=== PATIENT | male | born 1955 | race Caucasian/White ===

== ENCOUNTER → 2019-10-22 09:07 | Outpatient (REF) | payer OTHER, SELFPAY | LOC: ANHLAB 09:07 | PROVIDERS: PCP Family Medicine; Visit Provider Nurse Practitioner | DX: C44.319 Basal cell carcinoma of skin of other parts of face (principal) | CPT/HCPCS: 88305 ==

== ENCOUNTER 2019-12-13 10:54 | Outpatient (CLI) | payer OTHER, SELFPAY ==
[2019-12-13 11:14] LABS: Basophils Absolute Auto 0.1 K/mm3 (0.0-0.1); Basophils Percent Auto 1.1 % (0.2-1.2); Eosinophils Absolute Auto 0.2 K/mm3 (0-0.3); Eosinophils Percent Auto 3.3 % (0-4.4); Hematocrit 48.9 % (42.0-52.0); Hemoglobin 16.1 g/dL (14.0-18.0); Immature Granulocyte Absolute 0.02 K/mm3 (0.00-0.031); Immature Granulocyte Percent A 0.3 % (0-0.5); Lymphocytes Absolute Auto 2.61 K/mm3 (0.9-3.2); Lymphocytes Percent Auto 40.7 % (18.3-44.2); Mean Corpuscular HGB Conc 32.9 g/dl (32-36); Mean Corpuscular Hemoglobin 30.8 pg (26-34); Mean Corpuscular Volume 93.7 fl (80-100); Mean Platelet Volume 9.8 fl (7.4-10.4); Monocytes Absolute Auto 0.5 K/mm3 (0.1-0.6); Monocytes Percent Auto 8.1 % (2.6-8.5); Neutrophils Percent Auto 46.5 % (45.5-73.1); Platelet Count Result 223 k/mm3 (150-375); Red Blood Count 5.22 M/mm3 (4.6-6.20); Red Cell Distribution Width 12.4 % (11.5-14.5); White Blood Count 6.4 K/mm3 (4.5-10.0)
[2019-12-13 12:27] LABS: Alanine Aminotransferase 88 U/L (4-50); Albumin Level 4.4 g/dL (3.5-5.1); Alkaline Phosphatase 78 U/L (38-126); Aspartate Amino Transferase 54 U/L (17-59); Bilirubin,Total 0.6 mg/dL (0.2-1.3); Blood Urea Nitrogen 17 mg/dL (9-20); Calcium 9.8 mg/dL (8.4-10.2); Carbon Dioxide 26 mmol/L (22-30); Chloride 106 mmol/L (98-107); Estimated Glomerular Filt Rate > 60; Glucose 122 mg/dL (75-110); Lactate Dehydrogenase 369 U/L (313-618); Potassium 4.8 mmol/L (3.4-5.0); Sodium 139 mmol/L (137-145)
== END 2019-12-13 10:55 | disposition home or self-care (01) ==
PROVIDERS: PCP Family Medicine; Visit Provider Internal Medicine Hematology & Oncology
DX: C43.72 Malignant melanoma of left lower limb, including hip (principal)
CPT/HCPCS: 36415; 80053; 83615; 85025

== ENCOUNTER 2019-12-30 03:18 | Outpatient (CLI) | payer OTHER, SELFPAY ==
[2019-12-31 20:06] LABS: SARS-CoV-2 RNA PCR Negative
== END 2019-12-30 03:19 | disposition home or self-care (01) ==
LOC: ANHCOVIDDT 03:18
PROVIDERS: PCP Family Medicine; Visit Provider Internal Medicine Gastroenterology
DX: Z01.812 Encounter for preprocedural laboratory examination (principal); Z11.59 Encounter for screening for other viral diseases
CPT/HCPCS: 87635; C9803; U0003

== ENCOUNTER 2020-01-01 02:16 | Day surgery (SDC) | payer OTHER, SELFPAY ==
[2019-12-24 10:17] VITALS: BMI 30.9
[2020-01-01 06:16] VITALS: BP 145/83; PULSE 59; RESP 16; TEMP 36.3; O2SAT 97
[2020-01-01] MEDS: LACTATED RINGERS 1,000 ML 150 ML IV CONT (06:29)
--- NOTE | 2020-01-01 07:11 | WPDANESEPPF ---
Anes - Initial Pre Proc Eval Procedure: Operation Date: 01/01/20 07:30 Proposed Procedures p Screening Colonoscopy - Julián Underwood MD Date/Time: 01/01/20 07:11 Surgeon: Julián Underwood MD Pre Op Diagnosis: Neoplasm Screening Patient Data Age: 64 Gender: M Height: 5 ft 10 in Weight: 96.5 kg Last Vital Signs Temp 97.4 F L 01/01/20 06:16 Pulse 59 L 01/01/20 06:16 Resp 16 01/01/20 06:16 BP 145/83 H 01/01/20 06:16 Pulse Ox 97 01/01/20 06:16 Allergies Allergy/AdvReac Type Severity Reaction Status Date / Time No Known Allergies Allergy Verified 01/01/20 06:19 Home Medications Medication Instructions Recorded Confirmed Type No Home Medications 01/01/20 01/01/20 History Patient hx anesthesia problems: none Family hx anesthesia problems: none PMFSH Past Medical History Medical History (Updated 11/29/19 @ 10:53 by Wilver Clifton MD) Actinic keratoses High cholesterol History of melanoma Screen for colon cancer Screening PSA (prostate specific antigen) Surgical History Surgical History History of melanoma excision Social History Social History Smoking status: Never smoker Alcohol intake: current Anes - Eval Final PreProcedure Day of Procedure 01/01/20 07:11 Patient weight: normal Heart: regular rate and rhythm Lungs: clear to auscultation Airway: Mallampati scale class II Neurological: alert and oriented Last oral intake: >/= 8 hours ASA classification: II Emergent: no Anesthetic plan: proceed Anesthesia type and monitoring: general GIVS and standard monitoring Informed Consent: The patient's anesthetic plan and its attendant risks and benefits were discussed with the patient/family/POA. Questions were solicited and answers provided to the satisfaction of the patient/family/POA.
--- NOTE | 2020-01-01 07:33 | PM.HPGS ---
History of Present Illness History of Present Illness Consent: Risks, benefits, and alternatives have been discussed and questions answered. Patient agrees to proceed with procedure. Chief complaint: Neoplasm Screening Narrative: Flynn Gurrola is a 64 year old male here with history of colon polyps Review of Systems Constitutional: Constitutional: Denies headache(s) and Denies weakness Eyes: Eyes: Denies blurry vision ENT: Reports Normal hearing present, Denies headache(s) and Denies neck pain Cardiovascular: Cardiovascular: Denies chest pain and Denies dyspnea Respiratory: Respiratory: Denies dyspnea Gastrointestinal: Gastrointestinal: Reports no additional gastrointestinal complaints Genitourinary: Genitourinary: Denies dysuria Musculoskeletal: Musculoskeletal: Denies neck pain Integumentary/Breasts: Skin/Breast: Denies dry skin Neurologic: Reports Normal hearing present, Denies headache(s) and Denies weakness Psychiatric: Psychiatric: Denies anxiety Endocrine: Endocrine: Denies change in body appearance Hematologic/Lymphatic: Hematologic/Lymphatic: Denies easy bleeding Allergic/Immunologic: Allergic/Immunologic: Denies urticaria PMFSH Past Medical History Medical History (Updated 01/01/20 @ 07:34 by Julián Underwood MD) Actinic keratoses Colon polyp High cholesterol History of melanoma Screen for colon cancer Screening PSA (prostate specific antigen) Surgical History Surgical History History of melanoma excision Social History Social History Smoking status: Never smoker Alcohol intake: current Meds Home Medications and Allergies Home Medications Medication Instructions Recorded Confirmed Type No Home Medications 01/01/20 01/01/20 History Allergies Allergy/AdvReac Type Severity Reaction Status Date / Time No Known Allergies Allergy Verified 01/01/20 06:19 Vital Signs Vital Signs - 24 hr 01/01/20 06:16 Temperature 97.4 F L Pulse Rate 59 L Respiratory Rate 16 Blood Pressure 145/83 H Pulse Oximetry 97 Exam Const: General: comfortable and no acute distress HENMT: General nose exam: Normal nares present Eyes: General: appearance normal, both eyes and all related structures Neck: Neck: no JVD Resp: Auscultation: clear to auscultation bilaterally Cardio: Rate: regular rate Rhythm: regular rhythm GI: Inspection: non-distended GI Palp: Yes Soft to palpation Skin: General skin exam: normal color Neuro: General: gait normal Speech: normal speech Extrem: General: normal to inspection Psych: Mental Status: mental status grossly normal Assessment and Plan Assessment and plan (1) Colon polyp: Code(s): K63.5 - Polyp of colon Status: Acute Assessment and Plan: he is due to have another colonoscopy (2) Type 2 diabetes mellitus without complications: Qualifiers: Diabetes mellitus joint terminal attack controller insulin use: without joint terminal attack controller use Qualified Code(s): E11.9 - Type 2 diabetes mellitus without complications Code(s): E11.9 - Type 2 diabetes mellitus without complications Status: Acute
[2020-01-01 08:00] VITALS: BP 118/76; PULSE 55; RESP 19; O2SAT 98
[2020-01-01 08:10] VITALS: BP 105/73; PULSE 48; RESP 20; O2SAT 98
[2020-01-01 08:20] VITALS: BP 107/72; PULSE 48; RESP 20; O2SAT 99
== END 2020-01-01 08:33 | disposition home or self-care (01) ==
PROVIDERS: PCP Family Medicine; Visit Provider Internal Medicine Gastroenterology
PROC: 0DJD8ZZ Inspection of Lower Intestinal Tract, Via Natural or Artificial Opening Endoscopic (ICD-10-PCS; CPT 45378; principal; 2020-01-01 07:30)
DX: Z12.11 Encounter for screening for malignant neoplasm of colon (principal); D12.2 Benign neoplasm of ascending colon; D12.4 Benign neoplasm of descending colon; K57.30 Diverticulosis of large intestine without perforation or abscess without bleeding; K64.8 Other hemorrhoids
CPT/HCPCS: 45380; 45385; 87635; 88305; C9803; J2704; J7120; U0003

== ENCOUNTER → 2020-02-17 09:09 | Outpatient (REF) | payer OTHER, SELFPAY | LOC: ANHLAB 09:09 | PROVIDERS: PCP Family Medicine; Visit Provider Nurse Practitioner | DX: C44.319 Basal cell carcinoma of skin of other parts of face (principal) | CPT/HCPCS: 88305; 88331 ==

== ENCOUNTER 2020-06-16 11:38 | Outpatient (CLI) | payer OTHER, SELFPAY ==
[2020-06-16 11:55] LABS: Basophils Absolute Auto 0.1 K/mm3 (0.0-0.1); Basophils Percent Auto 1.1 % (0.2-1.2); Eosinophils Absolute Auto 0.2 K/mm3 (0-0.3); Eosinophils Percent Auto 2.9 % (0-4.4); Hematocrit 50.1 % (42.0-52.0); Hemoglobin 16.7 g/dL (14.0-18.0); Immature Granulocyte Absolute 0.02 K/mm3 (0.00-0.031); Immature Granulocyte Percent A 0.3 % (0-0.5); Lymphocytes Absolute Auto 2.26 K/mm3 (0.9-3.2); Mean Corpuscular HGB Conc 33.3 g/dl (32-36); Mean Corpuscular Hemoglobin 30.8 pg (26-34); Mean Corpuscular Volume 92.4 fl (80-100); Mean Platelet Volume 9.3 fl (7.4-10.4); Monocytes Absolute Auto 0.6 K/mm3 (0.1-0.6); Monocytes Percent Auto 8.9 % (2.6-8.5); Neutrophils Absolute Auto 3.2 K/mm3 (1.3-6.7); Neutrophils Percent Auto 50.8 % (45.5-73.1); Platelet Count Result 226 k/mm3 (150-375); Red Blood Count 5.42 M/mm3 (4.6-6.20); Red Cell Distribution Width 12.3 % (11.5-14.5); White Blood Count 6.3 K/mm3 (4.5-10.0)
[2020-06-16 12:45] LABS: Alanine Aminotransferase 84 U/L (4-50); Albumin Level 4.3 g/dL (3.5-5.1); Alkaline Phosphatase 73 U/L (38-126); Anion Gap 7 mmol/L (8-16); Aspartate Amino Transferase 54 U/L (17-59); Bilirubin,Total 0.7 mg/dL (0.2-1.3); Blood Urea Nitrogen 18 mg/dL (9-20); Calcium 10.1 mg/dL (8.4-10.2); Carbon Dioxide 29 mmol/L (22-30); Chloride 102 mmol/L (98-107); Estimated Glomerular Filt Rate > 60; Glucose 229 mg/dL (75-110); Lactate Dehydrogenase 385 U/L (313-618); Potassium 4.5 mmol/L (3.4-5.0); Sodium 138 mmol/L (137-145)
== END 2020-06-16 11:39 | disposition home or self-care (01) ==
LOC: ANHLAB 11:41
PROVIDERS: PCP Family Medicine; Visit Provider Internal Medicine Hematology & Oncology
DX: C43.72 Malignant melanoma of left lower limb, including hip (principal)
CPT/HCPCS: 36415; 80053; 83615; 85025

== ENCOUNTER → 2020-10-27 08:29 | Outpatient (REF) | payer MEDICARE, SELFPAY | LOC: ANHLAB 08:29 | PROVIDERS: PCP Family Medicine; Visit Provider Nurse Practitioner | DX: C43.61 Malignant melanoma of right upper limb, including shoulder (principal) | CPT/HCPCS: 88305; 88342 ==

== ENCOUNTER → 2020-11-09 00:25 | Outpatient (CLI) | payer MEDICARE, SELFPAY ==
[2020-11-09 21:52] LABS: SARS-CoV-2 RNA PCR Negative
== END ==
PROVIDERS: PCP Family Medicine; Visit Provider Surgery Plastic and Reconstructive Surgery
DX: Z01.812 Encounter for preprocedural laboratory examination (principal); Z20.822 Contact with and (suspected) exposure to COVID-19
CPT/HCPCS: C9803; U0003; U0005

== ENCOUNTER 2020-11-12 02:52 | Day surgery (SDC) | payer MEDICARE, SELFPAY ==
[2020-11-04 15:17] VITALS: BMI 30.2
--- NOTE | 2020-11-11 08:58 | WPDANESEPPF ---
Anes - Initial Pre Proc Eval Procedure: Operation Date: 11/12/20 10:00 Proposed Procedures p Excision Melanoma Right Shoulder with [place] Lymph Node Biopsy, Possible Complex Closure - Anish Kuo MD Date/Time: 11/11/20 08:58 Surgeon: Anish Kuo MD Pre Op Diagnosis: melanoma right shoulder Patient Data Age: 65 Gender: M Height: 1.78 m Weight: 95.35 kg Allergies Allergy/AdvReac Type Severity Reaction Status Date / Time No Known Allergies Allergy Verified 11/12/20 08:17 Home Medications Medication Instructions Recorded Confirmed Type No Home Medications 01/01/20 11/12/20 History Patient hx anesthesia problems: none Family hx anesthesia problems: none PMFSH Past Medical History Medical History (Updated 11/11/20 @ 09:02 by Pavan Hanley MD) Actinic keratoses Colon polyp High cholesterol History of basal cell carcinoma (BCC) History of melanoma Mixed hyperlipidemia Obesity Screen for colon cancer Screening PSA (prostate specific antigen) Type 2 diabetes mellitus without complications Surgical History Surgical History History of melanoma excision Family History Family History Mother Family history of diabetes mellitus in first degree relative Family history of coronary artery disease Family history of malignant neoplasm of ovary Father Family history of diabetes mellitus in first degree relative Family history of coronary artery disease Diabetes mellitus Social History Social History Smoking status: Never smoker Alcohol intake: current Alcohol use details: ONE DRINK PER MONTH Living arrangements: with family Spiritual care concerns: No Anes - Eval Final PreProcedure Day of Procedure 11/11/20 08:58 Patient weight: obese Heart: regular rate and rhythm Lungs: clear to auscultation and normal air movement Airway: Mallampati scale class II Neurological: alert and oriented Last oral intake: >/= 8 hours ASA classification: III Emergent: no Anesthetic plan: proceed Anesthesia type and monitoring: general LMA and ETT Informed Consent: The patient's anesthetic plan and its attendant risks and benefits were discussed with the patient/family/POA. Questions were solicited and answers provided to the satisfaction of the patient/family/POA.
[2020-11-12] VITALS (7 sets, daily range): BP systolic 108–139; BP diastolic 55–74; PULSE 52–59; RESP 10–16; TEMP 36.1–36.2; O2SAT 98–100
--- NOTE | ~2020-11-12 | NM_ITS ---
EXAMINATION: NM sentinel node w imaging EXAM DATE: 11/12/2020 09:25 INDICATION: Right shoulder melanoma. TECHNIQUE: 0.5-5 mCi Tc-99m Lymphoseek was injected in 2 separate aliquots anterior and posterior to a right-sided shoulder biopsy site. Frontal planar images were obtained. FINDINGS: Initial image demonstrates activity in the right shoulder injection site. After approximat lizeth 30 minutes of time, 2 foci of activity were identified in the junction between the right supracla vicular region and base of the neck. These were marked by the technologist. No axillary activity was demonstrated. IMPRESSION: 2 sentinel lymph nodes identified, marked at junction between right supraclavicular and neck regions. Reviewed, dictated and finalized at location A. IMPRESSION: 2 sentinel lymph nodes identified, marked at junction between rig t supraclavicular and neck regions.
[2020-11-12] MEDS: LACTATED RINGERS 1,000 ML 30 ML IV CONT ×2 (07:55→11:58)
--- NOTE | 2020-11-12 08:23 | SUR.PREOP ---
0820 PT TO NUCLEAR MEDICINE PER WHEELCHAIR.
--- NOTE | 2020-11-12 10:11 | WPDHPUPDATE1 ---
History and Physical Update Update Date/Time: 11/12/20 10:11 History and Physical has been reviewed, including an updated exam of the patient. There are NO changes in the patient's condition. Risks, benefits, and alternatives have been discussed and questions answered. Patient agrees to proceed with procedure.
--- NOTE | 2020-11-12 10:27 | P.OP_ITS ---
Procedure Note - Detailed Date of Procedure 11/12/20 Pre-op Diagnosis melanoma right shoulder Post-op Diagnosis same Procedure Performed 1. Wide excision right shoulder melanoma 8cm 2. Intermediate closure right shoulder 8cm 3. Right neck sentinel lymph node biopsy x 1 Surgeon Anish Kuo MD Anesthesia general Indications SKIN LESION OF RIGHT SHOULDER, PUNCH BIOPSY: - MALIGNANT MELANOMA, 0.2 CM IN GREATEST DIMENSION, ULCERATED, WITH DEPTH OF INVASION OF 1.5 MM Findings Right shoulder melanoma taken with greater 2 cm clinical margin. Description of Procedure Today we had an extensive conversation about the risks, benefits, alternatives with him and his . This was a lengthy open-ended conversation making sure they were well informed. I explained just because he has had success with previ ous melanoma this is unique melanoma with unique risks and unique outcomes. All the risks previously discussed still apply. Further I went over this discussion again today to make sure he was well informed. I made sure answered every 1 of their questions their understanding. They voiced an understanding. Consent obtained. Preoperatively he went to radiology was injected with radionucleotide. Films were taken. He was marked in the preoperative holding area with him and his 's verification of the location to be certain. The markings for sentinel node were clearly visible in his neck. Taken the operating room placed supine on the operating room table. Anesthesia was provided by anesthesiology and prepped and draped in a standard sterile fashion. Surgical time-out was taken. 1% lidocaine and 0.25% Marcaine was epinephrine was used anesthetize the nose site as well as the planned excision site. Using the probe identified the sentinel node in the neck. Only a single node w as identified with the probe. A 15 blade used to make an incision over these and dissection was continued until the nodes were identified. No evidence of neurovascular other structure injury. Background was less than 10% of the node. The node was sent to pathology. Closed using 3-0 Monocryl followed by running subcuticular 4-0 Monocryl and tissue glue. A 15 blade used to make an incision with greater than 2 cm clinical margin around the melanoma site. This was continued down to the level of fashion elevated just above above the fascia. This was closed in many layers to obliterate all space using 2-0 Vicryl, 3- 0 Monocryl, and vertical mattress 3-0 Nylon. Dressings placed. Estimated Blood Loss 10 Drains No Packing No Pathology yes (Lymph node x 1 and melanoma) Complications No immediate complications Condition stable Disposition PACU
[2020-11-12] MEDS: ceFAZolin 2 GM/D5W 50 ML 2 GM/50 ML BAG IVPB (10:35)
[2020-11-12] MEDS: BUPIVACAINE HCL 0.25% PF 30 ML VIAL INFILTRATE (11:08)
[2020-11-12] MEDS: LIDO 1%/EPINEPHRINE 1:100,000 50 ML VIAL 15 ML INFILTRATE (11:09)
[2020-11-12 16:35] LABS: Glucose Point of Care 116 mg/dl (65-105)
== END 2020-11-12 13:50 | disposition home or self-care (01) ==
PROVIDERS: PCP Family Medicine; Visit Provider Surgery Plastic and Reconstructive Surgery
PROC: (CPT 11606; principal; 2020-11-12 10:00)
DX: C43.61 Malignant melanoma of right upper limb, including shoulder (principal); E78.2 Mixed hyperlipidemia; E11.9 Type 2 diabetes mellitus without complications; E66.9 Obesity, unspecified; Z68.30 Body mass index [BMI] 30.0-30.9, adult
CPT/HCPCS: 11606; 12034; 38510; 78195; 82948; 88305; 88307; 88342; A9520; C1713; C9803; J0690; J1100; J2250; J2405; J2704; J3010; J7120; U0003; U0005

== ENCOUNTER 2020-11-23 08:22 | Outpatient (CLI) | payer MEDICARE, SELFPAY ==
[2020-11-23 09:01] LABS: Basophils Absolute Auto 0.1 K/mm3 (0.0-0.1); Basophils Percent Auto 0.9 % (0.2-1.2); Eosinophils Absolute Auto 0.2 K/mm3 (0-0.3); Eosinophils Percent Auto 2.7 % (0-4.4); Hematocrit 49.2 % (42.0-52.0); Hemoglobin 16.6 g/dL (14.0-18.0); Immature Granulocyte Absolute 0.02 K/mm3 (0.00-0.031); Immature Granulocyte Percent A 0.3 % (0-0.5); Lymphocytes Absolute Auto 2.81 K/mm3 (0.9-3.2); Lymphocytes Percent Auto 36.3 % (18.3-44.2); Mean Corpuscular HGB Conc 33.7 g/dl (32-36); Mean Corpuscular Hemoglobin 31.3 pg (26-34); Mean Corpuscular Volume 92.8 fl (80-100); Mean Platelet Volume 9.8 fl (7.4-10.4); Monocytes Absolute Auto 0.7 K/mm3 (0.1-0.6); Monocytes Percent Auto 8.4 % (2.6-8.5); Neutrophils Percent Auto 51.4 % (45.5-73.1); Platelet Count Result 220 k/mm3 (150-375); White Blood Count 7.8 K/mm3 (4.5-10.0)
[2020-11-23 09:32] LABS: Alanine Aminotransferase 39 U/L (4-50); Albumin Level 4.5 g/dL (3.5-5.1); Alkaline Phosphatase 77 U/L (38-126); Anion Gap 11 mmol/L (8-16); Aspartate Amino Transferase 30 U/L (17-59); Bilirubin,Total 0.4 mg/dL (0.2-1.3); Blood Urea Nitrogen 20 mg/dL (9-20); Calcium 10.1 mg/dL (8.4-10.2); Carbon Dioxide 25 mmol/L (22-30); Chloride 106 mmol/L (98-107); Estimated Glomerular Filt Rate > 60; Glucose 133 mg/dL (75-110); Lactate Dehydrogenase 327 U/L (313-618); Potassium 4.3 mmol/L (3.4-5.0); Sodium 142 mmol/L (137-145)
== END 2020-11-23 08:23 | disposition home or self-care (01) ==
LOC: ANHLAB 08:34
PROVIDERS: PCP Family Medicine; Visit Provider Internal Medicine Hematology & Oncology
DX: C43.72 Malignant melanoma of left lower limb, including hip (principal)
CPT/HCPCS: 36415; 80053; 83615; 85025

== ENCOUNTER 2020-12-15 11:16 | Emergency (ER) | payer MEDICARE, SELFPAY ==
[2020-12-15] VITALS (17 sets, daily range): BP systolic 117–156; BP diastolic 63–131; PULSE 57–74; RESP 15–27; TEMP 36.6; O2SAT 93–99
--- NOTE | ~2020-12-15 | XR_ITS ---
EXAMINATION: XR chest 2V DATE: 12/15/2020 12:36 INDICATION: Dizziness, fatigue and numbness in the extremities TECHNIQUE: frontal and lateral views of the chest were obtained. COMPARISON: None FINDINGS: The lungs are clear with no focal airspace opacities, pulmonary edema, pleural effusion or pneumothor ax. The cardiomediastinal silhouette is normal. Mild degenerative skeletal changes in the spine and a t both shoulders. IMPRESSION: 1. No acute cardiopulmonary disease. Reviewed, dictated and finalized at location A.
--- NOTE | ~2020-12-15 | CT_ITS ---
EXAMINATION: CTA brain carotid DATE: 12/15/2020 12:14 INDICATION: Stroke. TECHNIQUE: Computed tomographic angiography (CTA) of the head was performed without and with 100 mL O mnipaque-350 intravenous contrast. CTA of the neck was performed with intravenous contrast. Automated exposure control and iterative reconstruction technique were employed. The dose-length product was 1 608.58 mGy-cm. Maximum intensity projection and volume rendered 3D-reconstructions were created by e technologist on a separate workstation. COMPARISON: CT maxillofacial 10/16/2018. FINDINGS: HEAD CTA: There is a 1.4 cm mixed hypodense and hyperdense mass in right occipital lobe with surround ing intraparenchymal hematoma measuring 5.5 x 2.5 cm that is hyperdense and isodense to ribeiro matter. There is a 13 mm hyperdense mass involving right thalamus and posterior limb right internal capsule. There is a 13 mm hyperdense mass in right parietal lobe with surrounding vasogenic edema. There is a 15 mm mass in left parietal lobe that is mildly hyperdense to ribeiro matter with surrounding vasogenic edema. There is a 4 mm hyperdense mass in right frontal lobe. There is no acute ischemic infarct. The ventricles are normal in size. The paranasal sinuses are clear. The mastoid air cells are normal. e orbits are normal. The vertebral arteries are codominant. There is no significant stenosis of basil ar artery or the posterior cerebral arteries. Left P1 posterior cerebral artery segment is absent, a normal variant. The posterior communicating arteries are normal. There is no significant stenosis of the intracranial internal carotid arteries or anterior or middle cerebral arteries. Anterior communic ating artery is normal. There is no aneurysm. NECK CTA: The visualized portions of the lung apices demonstrate a few scattered pulmonary nodules me asuring up to 9 mm in left upper lobe. There are no pathologically enlarged lymph nodes. There is no significant stenosis of the vertebral arteries. There is mild plaque in the proximal internal carotid arteries. There is 0% stenosis of the proximal right internal carotid artery relative to normal dist al artery lumen diameter (NASCET criteria). There is 0% stenosis of the proximal left internal caroti d artery relative to normal distal artery lumen diameter. There is severe cervical spondylosis. IMPRESSION: 1. Multiple brain masses and lung nodules, consistent with metastatic disease. 2. Intraparenchymal hematoma in right occipital lobe around a metastasis, likely subacute. I called t his result to Dr. Kelsey. 3. No aneurysm or significant intracranial arterial stenosis. 4. 0% stenosis of the proximal internal carotid arteries relative to normal distal artery lumen diame ters (NASCET criteria). Reviewed, dictated and finalized at location A. IMPRESSION: 1. Multiple brain masses and lung nodules, consistent with metastatic disease. 2. Intraparenchymal hematoma in right occipital lobe around a metastasis, likel y subacute. I called this result to Dr. Kelsey. 3. No aneurysm or significant intracranial arterial stenosis. 4. 0% stenosis of the proximal internal carotid arteries relative to normal dis lauryn artery lumen diameters (NASCET criteria).
--- NOTE | 2020-12-15 11:29 | ECG_ITS ---
Measurements Intervals [place] Rate: 55 P: 20 [place]: 154 QRS: 34 QRSD: 110 T: 28 QT: 418 QTc: 402 Interpretive Statements SINUS BRADYCARDIA BASELINE ARTIFACT- I, II, III, AVR, AVL, AVF, V1-V3 BORDERLINE ECG Electronically Signed On 12-16-2020 7:33:45 CDT by Adrián Malagon D.O.
[2020-12-15 11:43] LABS: Basophils Absolute Auto 0.1 K/mm3 (0.0-0.1); Basophils Percent Auto 1.2 % (0.2-1.2); Eosinophils Absolute Auto 0.1 K/mm3 (0-0.3); Hematocrit 50.2 % (42.0-52.0); Hemoglobin 16.9 g/dL (14.0-18.0); Immature Granulocyte Absolute 0.02 K/mm3 (0.00-0.031); Immature Granulocyte Percent A 0.3 % (0-0.5); Lymphocytes Absolute Auto 2.12 K/mm3 (0.9-3.2); Mean Corpuscular HGB Conc 33.7 g/dl (32-36); Mean Corpuscular Hemoglobin 31.2 pg (26-34); Mean Corpuscular Volume 92.8 fl (80-100); Monocytes Absolute Auto 0.4 K/mm3 (0.1-0.6); Monocytes Percent Auto 6.2 % (2.6-8.5); Neutrophils Absolute Auto 3.9 K/mm3 (1.3-6.7); Neutrophils Percent Auto 58.3 % (45.5-73.1); Platelet Count Result 228 k/mm3 (150-375); Red Blood Count 5.41 M/mm3 (4.6-6.20); White Blood Count 6.6 K/mm3 (4.5-10.0)
[2020-12-15 11:54] LABS: Anion Gap 9 mmol/L (8-16); Blood Urea Nitrogen 17 mg/dL (9-20); Calcium 10.1 mg/dL (8.4-10.2); Carbon Dioxide 27 mmol/L (22-30); Chloride 105 mmol/L (98-107); Estimated CRCL calculation 75 ml/min; Estimated Glomerular Filt Rate > 60; Glucose 199 mg/dL (75-110); Sodium 141 mmol/L (137-145)
--- NOTE | 2020-12-15 12:52 | ED.GENADULT ---
HPI - General Adult General Chief complaint: Unspecified Stated complaint: blurred vision Time Seen by Provider: 12/15/20 11:23 History of Present Illness HPI narrative: Patient is a 65-year-old male who presents ER with dizziness and left peripheral vision loss is affecting both eyes. Ongoing for 14 days. Initially started after he had received nitrous oxide for a dental procedure. Reports he also had intense headache that day. He has been having intermittent headaches since then. Patient recently had a melanoma excised from his right shoulder on 11/12/2020 with sentinel node biopsy that was negative. He sees Dr. Murcia for oncologic care. Patient denies any upper or lower extremity weakness or numbness. No slurred speech or facial droop. He is not on any blood thinning medication. No previous history of CVA. Related Data Home Medications Medication Instructions Recorded Confirmed No Home Medications 12/15/20 12/15/20 Allergies Allergy/AdvReac Type Severity Reaction Status Date / Time No Known Allergies Allergy Verified 12/15/20 11:29 Review of Systems Review of Systems: All systems reviewed & are unremarkable except as noted in HPI and below Constitutional: Constitutional: Denies chills and Denies fever(s) Eyes: Eyes: Reports blind spots, Denies blurry vision, Reports change in vision and Denies diplopia Gastrointestinal: Gastrointestinal: Denies abdominal pain, Denies nausea and Denies vomiting Neurologic: Denies abnormal gait, Reports dizziness, Denies syncope, Denies frequent falls, Reports headache(s), Denies focal weakness and Denies seizure-like activity PMFSH Past Medical History Medical History Actinic keratoses Colon polyp High cholesterol History of basal cell carcinoma (BCC) History of melanoma Mixed hyperlipidemia Obesity Screen for colon cancer Screening PSA (prostate specific antigen) Type 2 diabetes mellitus without complications Surgical History Surgical History History of melanoma excision Family History Family History Mother Family history of diabetes mellitus in first degree relative Family history of coronary artery disease Family history of malignant neoplasm of ovary Father Family history of diabetes mellitus in first degree relative Family history of coronary artery disease Diabetes mellitus Social History Social History Smoking status: Never smoker Alcohol intake: current Alcohol use details: ONE DRINK PER MONTH Spiritual care concerns: No Exam Narrative: Exam Narrative: GENERAL: Well-appearing, well-nourished, and in no acute distress. HEAD: Normocephalic, atraumatic. EYES: PERRL and EOMI. loss of vision in the left upper and lower visual felix and bilateral eyes. ENT: Mucous membranes moist. CHEST: Clear to auscultation. No respiratory distress. HEART: Regular rate and rhythm. Normal peripheral pulses. ABDOMEN: Soft, nontender, nondistended. EXTREMITIES: Normal range of motion. No edema. SKIN: Warm, dry, no rash. NEURO: Normal [id number] testing rapid alternating movements of the upper extremities. No upper or lower extremity drift. Clear speech with cranial nerves II through XII intact with the exception of the visual field deficits as noted above. Alert and oriented x3. Walks with a steady gait. PSYCH: Normal mood and affect. Course Reevaluation(s) Reevaluation #1: Discussed CT results with patient and . Informed the patient's PCP and oncologist about the results of the imaging studies. Dr. Murcia the patient's oncologist recommends transfer to the [facility] for further evaluation and treatment. Date: 12/15/20 Time: 12:56 Reevaluation #2: Patient resting comfortably. Was accepted by Dr. Mireles
[2020-12-15] MEDS: DEXAMETHASONE SOD PHOS INJ 4 MG/ML VIAL 10 MG IV PUSH (13:54)
[2020-12-15] MEDS: levETIRAcetam 1000MG/NACL100ML 1,000 MG/100 ML BAG 400 MG IVPB (13:55)
--- NOTE | 2020-12-15 17:28 | PC.NURSE ---
Report given at this time to MIRA Rogers @ [facility]. ROom [id number]
--- NOTE | 2020-12-15 19:32 | PC.NURSE ---
made contact with [employer] for a new eta. company stated new eta 2030
--- NOTE | 2020-12-15 20:27 | PC.NURSE ---
pat has arrived and is aware that the patient is going to [facility]
== END 2020-12-15 20:34 | disposition short-term general hospital (02) ==
PROVIDERS: Emergency Provider Emergency Medicine; PCP Family Medicine
DX: C80.1 Malignant (primary) neoplasm, unspecified (principal); C79.31 Secondary malignant neoplasm of brain; C78.00 Secondary malignant neoplasm of unspecified lung; I61.9 Nontraumatic intracerebral hemorrhage, unspecified; E78.5 Hyperlipidemia, unspecified; E11.9 Type 2 diabetes mellitus without complications
CPT/HCPCS: 36415; 70496; 70498; 71046; 80048; 85025; 93005; 96374; 96375; 99285; J1100; J1953; Q9967

== ENCOUNTER → 2021-01-07 09:23 | Outpatient (REF) | payer MEDICARE, SELFPAY | LOC: ANHLAB 09:23 | PROVIDERS: PCP Family Medicine; Visit Provider Nurse Practitioner | DX: D22.4 Melanocytic nevi of scalp and neck (principal) | CPT/HCPCS: 88305 ==

== ENCOUNTER 2021-01-11 08:36 | Outpatient (CLI) | payer MEDICARE, SELFPAY ==
--- NOTE | ~2021-01-11 | CT_ITS ---
EXAMINATION: CT soft tissue neck chest w DATE: 01/11/2021 09:27 INDICATION: Malignant melanoma of left lower extremity. TECHNIQUE: Computed tomography (CT) of the neck and chest was performed with 75 mL Omnipaque-350 intr avenous contrast. Automated exposure control and iterative reconstruction technique were employed. Th e dose-length product was 1084.86 mGy-cm. COMPARISON: CTA head and neck 12/15/2020, CT abdomen and pelvis 06/13/2019 FINDINGS: CT NECK: Again seen are masses in the right occipital lobe and right thalamus. There is vasogenic fabian ma in the right frontoparietal region from a mass that is not included. There are no pathologically e nlarged lymph nodes. There is minimal plaque in proximal right internal carotid artery with 0% stenos is relative to normal distal artery lumen diameter. There are surgical clips in right neck. There is severe cervical spondylosis. There is mild mucosal thickening in the ethmoid sinuses. The mastoid air cells are normal. CT CHEST: The lungs demonstrate mild atelectasis. There are greater than 15 scattered nodules in the lungs measuring up to 13 mm in left lower lobe. No pleural effusion. The heart size is normal. No per icardial effusion. There are changes of cholecystectomy. There is diffuse hepatic steatosis. There is mild thoracic spondylosis. IMPRESSION: 1. Brain masses and pulmonary nodules, consistent metastatic disease. Reviewed, dictated and finalized at location A.
== END 2021-01-11 08:37 | disposition home or self-care (01) ==
LOC: ANHIMG 08:39
PROVIDERS: PCP Family Medicine; Visit Provider Internal Medicine Hematology & Oncology
DX: C43.72 Malignant melanoma of left lower limb, including hip (principal); R91.8 Other nonspecific abnormal finding of lung field
CPT/HCPCS: 70491; 71260; Q9967

== ENCOUNTER 2021-01-19 08:41 | Outpatient (CLI) | payer MEDICARE, SELFPAY ==
[2021-01-19 09:05] LABS: Basophils Absolute Auto 0.1 K/mm3 (0.0-0.1); Basophils Percent Auto 0.7 % (0.2-1.2); Eosinophils Absolute Auto 0.1 K/mm3 (0-0.3); Hematocrit 46.8 % (42.0-52.0); Hemoglobin 15.8 g/dL (14.0-18.0); Immature Granulocyte Absolute 0.18 K/mm3 (0.00-0.031); Immature Granulocyte Percent A 2.5 % (0-0.5); Lymphocytes Absolute Auto 1.26 K/mm3 (0.9-3.2); Lymphocytes Percent Auto 17.8 % (18.3-44.2); Mean Corpuscular HGB Conc 33.8 g/dl (32-36); Mean Corpuscular Hemoglobin 31.5 pg (26-34); Mean Corpuscular Volume 93.2 fl (80-100); Mean Platelet Volume 8.6 fl (7.4-10.4); Monocytes Absolute Auto 0.7 K/mm3 (0.1-0.6); Monocytes Percent Auto 9.9 % (2.6-8.5); Neutrophils Absolute Auto 4.8 K/mm3 (1.3-6.7); Neutrophils Percent Auto 67.1 % (45.5-73.1); Platelet Count Result 170 k/mm3 (150-375); Red Blood Count 5.02 M/mm3 (4.6-6.20); Red Cell Distribution Width 12.7 % (11.5-14.5); White Blood Count 7.1 K/mm3 (4.5-10.0)
[2021-01-19 09:08] LABS: Blood Urea Nitrogen 18 mg/dL (8-26); Carbon Dioxide 27 mmol/L (22-30); Chloride 101 mmol/L (98-109); Estimated Glomerular Filt Rate > 60; Glucose 144 mg/dL (70-105); Potassium 4.2 mmol/L (3.5-4.9); Sodium 139 mmol/L (138-146)
[2021-01-19 13:08] LABS: MALB Creatinine Ratio 10.8 mg/g (0-30)
[2021-01-19 13:32] LABS: Hemoglobin A1C 8.3 % (<5.7)
[2021-01-19 16:43] LABS: Alanine Aminotransferase 138 U/L (4-50); Albumin Level 3.9 g/dL (3.5-5.1); Alkaline Phosphatase 74 U/L (38-126); Aspartate Amino Transferase 38 U/L (17-59); Bilirubin,Total 0.8 mg/dL (0.2-1.3); Cholesterol 209 mg/dL (0-200); HDL Direct 63 mg/dL; Triglycerides 149 mg/dL (<150)
[2021-01-19 16:45] LABS: Alanine Aminotransferase 137 U/L (4-50); Albumin Level 3.8 g/dL (3.5-5.1); Alkaline Phosphatase 73 U/L (38-126); Anion Gap 6 mmol/L (8-16); Aspartate Amino Transferase 38 U/L (17-59); Bilirubin,Total 0.8 mg/dL (0.2-1.3); Blood Urea Nitrogen 18 mg/dL (9-20); Carbon Dioxide 27 mmol/L (22-30); Chloride 105 mmol/L (98-107); Estimated Glomerular Filt Rate > 60; Glucose 136 mg/dL (65-110); Lactate Dehydrogenase 498 U/L (313-618); Potassium 4.5 mmol/L (3.4-5.0); Sodium 138 mmol/L (137-145)
[2021-01-19 16:56] LABS: LDL Cholesterol Direct 104 mg/dL
== END 2021-01-19 08:42 | disposition home or self-care (01) ==
LOC: ANHLAB 08:44
PROVIDERS: PCP Family Medicine; Referring Provider Internal Medicine Hematology & Oncology; Visit Provider Family Medicine
DX: E78.2 Mixed hyperlipidemia (principal); E11.9 Type 2 diabetes mellitus without complications; Z13.220 Encounter for screening for lipoid disorders; C43.72 Malignant melanoma of left lower limb, including hip; C79.31 Secondary malignant neoplasm of brain; Z12.5 Encounter for screening for malignant neoplasm of prostate
CPT/HCPCS: 36415; 80048; 80053; 80061; 80076; 82043; 83036; 83615; 85025

== ENCOUNTER → 2021-01-25 09:12 | Outpatient (CLI) | payer MEDICARE, SELFPAY ==
[2021-01-26 01:23] LABS: SARS-CoV-2 RNA PCR Negative
== END ==
PROVIDERS: PCP Family Medicine; Visit Provider Family Medicine
DX: R68.89 Other general symptoms and signs (principal); Z20.822 Contact with and (suspected) exposure to COVID-19
CPT/HCPCS: C9803; U0003; U0005

== ENCOUNTER 2021-01-26 18:13 | Emergency (ER) | payer MEDICARE, SELFPAY ==
--- NOTE | ~2021-01-26 | XR_ITS ---
XR chest 2V DATE: 01/26/2021 18:59 INDICATION: Fever, body aches, nonproductive cough, nausea TECHNIQUE: AP and lateral chest COMPARISON: 12/15/2020 2 view chest FINDINGS: Normal heart size. No hilar or mediastinal enlargement. There is mild atelectasis in the lower lung zones, right greater than left. No pleural effusion or pu lmonary vascular congestion or pneumothorax. Degenerative spurring of the thoracic and lumbar spine. IMPRESSION: Mild bilateral lower lung atelectasis, right greater than left Reviewed, dictated and finalized at location A.
[2021-01-26 18:39] VITALS: BP 114/71; PULSE 73; RESP 18; TEMP 37.1; O2SAT 99
[2021-01-26 19:33] VITALS: BP 116/75; PULSE 67; RESP 16; O2SAT 98
[2021-01-26 19:50] VITALS: O2SAT 99
[2021-01-26 19:54] LABS: Basophils Absolute Auto 0.1 K/mm3 (0.0-0.1); Basophils Percent Auto 0.8 % (0.2-1.2); Eosinophils Absolute Auto 0.1 K/mm3 (0-0.3); Eosinophils Percent Auto 1.3 % (0-4.4); Hematocrit 44.5 % (42.0-52.0); Hemoglobin 15.2 g/dL (14.0-18.0); Immature Granulocyte Absolute 0.31 K/mm3 (0.00-0.031); Immature Granulocyte Percent A 3.6 % (0-0.5); Lymphocytes Absolute Auto 1.52 K/mm3 (0.9-3.2); Lymphocytes Percent Auto 17.8 % (18.3-44.2); Mean Corpuscular HGB Conc 34.2 g/dl (32-36); Mean Corpuscular Hemoglobin 31.4 pg (26-34); Mean Corpuscular Volume 91.9 fl (80-100); Mean Platelet Volume 8.8 fl (7.4-10.4); Neutrophils Absolute Auto 5.5 K/mm3 (1.3-6.7); Neutrophils Percent Auto 64.5 % (45.5-73.1); Platelet Count Result 233 k/mm3 (150-375); Red Blood Count 4.84 M/mm3 (4.6-6.20); Red Cell Distribution Width 12.4 % (11.5-14.5); White Blood Count 8.5 K/mm3 (4.5-10.0)
[2021-01-26 20:17] LABS: Alanine Aminotransferase 70 U/L (4-50); Albumin Level 3.9 g/dL (3.5-5.1); Alkaline Phosphatase 74 U/L (38-126); Anion Gap 6 mmol/L (8-16); Aspartate Amino Transferase 39 U/L (17-59); Bilirubin,Total 1.1 mg/dL (0.2-1.3); Blood Urea Nitrogen 9 mg/dL (9-20); Calcium 9.5 mg/dL (8.4-10.2); Carbon Dioxide 26 mmol/L (22-30); Chloride 102 mmol/L (98-107); Estimated CRCL calculation 83 ml/min; Estimated Glomerular Filt Rate > 60; Glucose 99 mg/dL (65-110); Potassium 3.7 mmol/L (3.4-5.0); Sodium 134 mmol/L (137-145)
--- NOTE | 2021-01-26 20:23 | ED.GENADULT ---
HPI - General Adult General Chief complaint: Upper Respiratory Infection Stated complaint: Cough,Fever,Chills x 1 week Negative COVId Time Seen by Provider: 01/26/21 19:36 Source: patient History of Present Illness HPI narrative: Patient is a 65 y/o male complaining of cough, fever, chills and bodyache starting 1 week ago. He states that his cough is mostly dry. There is no known alleviating or exacerbating factor. He state that his PCP called in Z-pack, but it has not helped so far. 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 Related Data Home Medications Medication Instructions Recorded Confirmed levetiracetam 500 mg/5 mL (5 mL) 500 mg PO Q12H 01/18/21 01/21/21 oral solution omeprazole 20 mg PO PRN PRN 01/21/21 01/21/21 Allergies Allergy/AdvReac Type Severity Reaction Status Date / Time No Known Allergies Allergy Verified 01/26/21 19:34 Review of Systems Constitutional: Constitutional: Reports chills, Reports fever(s), Denies headache(s) and Denies weakness Eyes: Eyes: Denies blurry vision ENT: Denies headache(s), Denies neck pain and Reports sore throat Cardiovascular: Cardiovascular: Denies chest pain and Reports dyspnea Respiratory: Respiratory: Reports cough and Reports dyspnea Gastrointestinal: Gastrointestinal: Denies abdominal pain, Denies diarrhea, Denies nausea and Denies vomiting Genitourinary: Genitourinary: Denies hematuria and Denies dysuria Musculoskeletal: Musculoskeletal: Denies back pain and Denies neck pain Neurologic: Denies headache(s) and Denies weakness [facility] Past Medical History Medical History Actinic keratoses BMI 28.0-28.9,adult Colon polyp High cholesterol History of basal cell carcinoma (BCC) History of melanoma Mixed hyperlipidemia Obesity Screen for colon cancer Screening PSA (prostate specific antigen) Type 2 diabetes mellitus without complications Surgical History Surgical History History of melanoma excision Family History Family History Mother Family history of diabetes mellitus in first degree relative Family history of coronary artery disease Family history of malignant neoplasm of ovary Father Family history of diabetes mellitus in first degree relative Family history of coronary artery disease Diabetes mellitus Social History Social History Smoking status: Never smoker Alcohol intake: current Alcohol use details: ONE DRINK PER MONTH Spiritual care concerns: No Exam Const: General: no acute distress and well developed Orientation/consciousness: oriented to person, oriented to place, oriented to time and patient oriented x3 HENMT: Head: normocephalic Ears: external ears normal General nose exam: Normal external nose present Eyes: General: appearance normal, both eyes and all related structures Conjunctivae: conjunctivae normal Neck: Neck: normal visual inspection and full ROM Chest: Chest palpation & inspection: normal inspection of the chest and no tenderness Resp: Effort & Inspection: normal respiratory effort Auscultation: clear to auscultation bilaterally Cardio: Rate: regular rate Rhythm: regular rhythm GI: GI Palp: No abdominal tenderness and Yes Soft to palpation Skin: General skin exam: normal color and turgor normal Neuro: General: oriented to person, oriented to place, oriented to time and patient oriented x3 Cognition (Neuro): normal cognition Extrem: General: normal to inspection, full ROM and no pedal edema Psych: Appearance: grossly normal Mental Status: mental status grossly normal Affect: normal affect Course Vital Signs Vital signs: Vital Signs Temperature 37.1 C 01/26/21 18:39 Pulse Rate 73 01/26/21 18:39 Respiratory Rate
[2021-01-26 20:27] LABS: EDCOVIDSCREEN Negative (Negative)
[2021-01-26 20:34] VITALS: BP 123/69; PULSE 68; RESP 16; O2SAT 94
[2021-01-26 21:12] VITALS: BP 116/66; PULSE 69; RESP 25; O2SAT 95
== END 2021-01-26 21:16 | disposition home or self-care (01) ==
PROVIDERS: Emergency Provider Emergency Medicine; PCP Family Medicine
DX: Z20.822 Contact with and (suspected) exposure to COVID-19 (principal); J06.9 Acute upper respiratory infection, unspecified; E78.5 Hyperlipidemia, unspecified; E11.9 Type 2 diabetes mellitus without complications
CPT/HCPCS: 36415; 71046; 80053; 85025; 87426; 99283; C9803

== ENCOUNTER 2021-02-04 02:01 | Day surgery (SDC) | payer MEDICARE, SELFPAY ==
[2021-02-01 14:19] VITALS: BMI 28.7
--- NOTE | 2021-02-03 12:32 | WPDANESEPPF ---
Anes - Initial Pre Proc Eval Procedure: Operation Date: 02/04/21 09:00 Proposed Procedures p Blaire Catheter Insertion - Miles Howard MD Date/Time: 02/03/21 12:32 Surgeon: Miles Howard MD Pre Op Diagnosis: Cancer Patient Data Age: 65 Gender: M Height: 1.78 m Weight: 90.9 kg Allergies Allergy/AdvReac Type Severity Reaction Status Date / Time No Known Allergies Allergy Verified 02/04/21 07:58 Home Medications Medication Instructions Recorded Confirmed Type levetiracetam 500 mg/5 mL (5 mL) 500 mg PO Q12H 01/18/21 02/04/21 History oral solution omeprazole 20 mg PO PRN PRN 01/21/21 02/04/21 History ondansetron 4 mg disintegrating 4 mg PO Q8H PRN #10 tablet 02/02/21 02/04/21 Rx tablet Patient hx anesthesia problems: none Family hx anesthesia problems: none PMFSH Past Medical History Medical History (Updated 02/03/21 @ 12:33 by Wellington Waters DO) Actinic keratoses BMI 28.0-28.9,adult Brain tumor x5 Colon polyp GERD (gastroesophageal reflux disease) High cholesterol History of basal cell carcinoma (BCC) History of melanoma Mixed hyperlipidemia Obesity Screen for colon cancer Screening PSA (prostate specific antigen) Type 2 diabetes mellitus without complications Surgical History Surgical History History of melanoma excision Family History Family History Mother Family history of diabetes mellitus in first degree relative Family history of coronary artery disease Family history of malignant neoplasm of ovary Father Family history of diabetes mellitus in first degree relative Family history of coronary artery disease Diabetes mellitus Social History Social History Smoking status: Never smoker Alcohol intake: current Alcohol use details: ONE DRINK PER MONTH Living arrangements: with family Spiritual care concerns: No Anes - Eval Final PreProcedure Day of Procedure 02/03/21 12:32 Patient weight: overweight Heart: regular rate and rhythm Lungs: clear to auscultation and normal air movement Airway: Mallampati scale class II Neurological: alert and oriented Last oral intake: >/= 8 hours ASA classification: III Emergent: no Anesthetic plan: proceed Anesthesia type and monitoring: general GIVS and standard monitoring Informed Consent: The patient's anesthetic plan and its attendant risks and benefits were discussed with the patient/family/POA. Questions were solicited and answers provided to the satisfaction of the patient/family/POA.
--- NOTE | ~2021-02-04 | XR_ITS ---
EXAMINATION: XR fl guide central line place DATE: 02/04/2021 09:52 INDICATION: Port catheter insertion TECHNIQUE: Single frontal fluoroscopic image of the upper chest was obtained during procedure perform ed by Dr. Howard. Radiologist was not present for the imaging or procedure. The amount of fluoroscop y time used during this procedure was 0.5 minutes. COMPARISON: None. FINDINGS: Right internal jugular central venous catheter with distal tip at the level of the mid superior vena cava. Visualized apices of lungs and superior mediastinum are unremarkable. IMPRESSION: 1. Right internal jugular central venous catheter with distal tip in the mid superior vena cava. Reviewed, dictated and finalized at location A. IMPRESSION: 1. Right internal jugular central venous catheter with distal tip in the mid mayers perior vena cava.
--- NOTE | ~2021-02-04 | XR_ITS ---
EXAMINATION: XR chest port-a-cath/central INDICATION: Port-A-Cath insertion TECHNIQUE: Portable AP view of the chest is obtained at 1012 COMPARISON: 01/26/2021 FINDINGS: A right internal jugular Port-A-Cath has been inserted which ends with its tip at the super ior cavoatrial junction. There is no pleural effusion or pneumothorax. The cardiomediastinal silhouet te is normal. The lungs are free of acute opacities. There is mild atelectasis of the lung bases. IMPRESSION: 1. Right internal jugular Port-A-Cath insertion. No pneumothorax. Reviewed, dictated and finalized at location A.
[2021-02-04 07:18] VITALS: BP 107/70; PULSE 53; RESP 18; TEMP 36.6; O2SAT 99
[2021-02-04] MEDS: LACTATED RINGERS 1,000 ML 30 ML IV CONT ×2 (07:52→10:05)
[2021-02-04] MEDS: KETOROLAC 15 MG/ML VIAL (*BKC) IV PUSH (07:55)
--- NOTE | 2021-02-04 08:32 | PM.HPGS ---
History of Present Illness History of Present Illness Consent: Risks, benefits, and alternatives Of placement of an ultrasound-guided Port-A-Cath have been discussed and questions answered. Patient agrees to proceed with procedure. Chief complaint: Cancer Narrative: Flynn Gurrola is a 65 year old male who has had melanoma in 2 places. Most recently on his right posterior shoulder and had a excisional therapy with right sentinel lymph node biopsy on his neck. 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 Patient and Dr. Divina tillman now planning to proceed with palliative immunotherapy. He has put in a request for a port placement to facilitate this. Review of Systems Constitutional: Constitutional: Reports no additional constitutional complaints, Reports fatigue and Denies malaise Eyes: Eyes: Denies change in vision and Denies loss of vision ENT: Reports Normal hearing present, Denies change in voice, Denies dizziness, Denies hoarseness and Denies sore throat Cardiovascular: Cardiovascular: Denies chest pain, Denies leg edema and Denies dyspnea Respiratory: Respiratory: Denies cough, Denies dyspnea and Denies wheezing Gastrointestinal: Gastrointestinal: Denies hematochezia, Denies change in bowel habits and Denies heartburn Genitourinary: Genitourinary: Denies urinary frequency and Denies urinary incontinence Integumentary/Breasts: Comments: History of Melanoma of the Posterior lower leg near the ankle Neurologic: Reports Normal hearing present, Denies confusion, Denies dizziness, Denies loss of vision, Denies memory loss and Denies seizure-like activity Psychiatric: Psychiatric: Denies confusion, Denies depression and Denies memory loss Endocrine: Endocrine: Denies cold intolerance, Reports fatigue and Reports other ( history of type 2 diabetes) Hematologic/Lymphatic: Hematologic/Lymphatic: Denies easy bleeding and Denies easy bruising Allergic/Immunologic: Allergic/Immunologic: Denies wheezing PMFSH Past Medical History Medical History (Updated 02/04/21 @ 08:44 by Miles Howard MD) Actinic keratoses BMI 28.0-28.9,adult Brain tumor x5 Colon polyp GERD (gastroesophageal reflux disease) High cholesterol History of basal cell carcinoma (BCC) History of melanoma 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 (Unknown) Mixed hyperlipidemia Obesity Screen for colon cancer Screening PSA (prostate specific antigen) Type 2 diabetes mellitus without complications Surgical History Surgical History History of melanoma excision Family History Family History Mother Family history of diabetes mellitus in first degree relative Family history of coronary artery disease Family history of malignant neoplasm of ovary Father Family history of diabetes mellitus in first degree relative Family history of coronary artery disease Diabetes mellitus Social History Social History Smoking status: Never smoker Alcohol intake: current Alcohol use details: ONE DRINK PER MONTH Living arrangements: with family Spiritual care concerns: No Meds Home Medications and Allergies Home Medications Medication Instructions Recorded Confirmed Type levetiracetam 500 mg/5 mL (5 mL) 500 mg PO Q12H 01/18/21 02/04/21 History oral solution omeprazole 20 mg PO PRN PRN 01/21/21 02/04/21 History ondansetron 4 mg disintegrating 4 mg PO Q8H PRN #10 tablet 02/02/21 02/04/21 Rx tablet Allergies Allergy/AdvReac Type Severity Reaction Status Date / Time No Known Allergies Allergy Verified 02/04/21 07:58 Vital Signs Vital Signs - 24 hr 02/04/21 07:18 Temperature 36.6 C Pulse Rate 53 L Respiratory Rate 18 Blood Pressure 107/70 Pulse Oximetry 99 Exam Const: General: cooperative, healthy
--- NOTE | 2021-02-04 09:03 | WPDHPUPDATE1 ---
History and Physical Update Update Date/Time: 02/04/21 09:03 History and Physical has been reviewed, including an updated exam of the patient. There are NO changes in the patient's condition. Risks, benefits, and alternatives have been discussed and questions answered. Patient agrees to proceed with procedure.
[2021-02-04] MEDS: ceFAZolin 2 GM/D5W 50 ML 2 GM/50 ML BAG IVPB (09:07)
[2021-02-04] MEDS: HEPARIN SODIUM 5,000 UNITS/ML VIAL 5000 UNITS IRRIGATION (09:45)
--- NOTE | 2021-02-04 10:01 | W.PM.PROC2 ---
Procedure Note - Detailed Date of Procedure 02/04/21 Pre-op Diagnosis Malignant melanoma with metastasis to the brain Post-op Diagnosis same Procedure Performed Ultrasound guided Placement of Blaire-cath Surgeon Miles Howard MD Settlement Clerk John Paul [email or web address].OR staff physical therapy assistant Anesthesia local (with 0.25% Marcaine with epinepherine) and other (GIVS) Indications Patient has just completed her radiation treatments to metastasis to the brain from his malignant melanoma that was excised earlier this year on the posterior right shoulder region. He is planning to undergo palliative immunotherapy. Findings Normal vascular anatomy by ultrasound of the right neck. Description of Procedure Patient was seen and marked in the pre-op area prior to coming to the OR. Patient was brought to the operating room. Patient was placed supine on the operating table and general IV sedation was induced. The nurse tailor garment fitter provided oxygen and IV sedation. Patient's head was carefully turned to the left side while in the supine position and the patient's entire neck and anterior chest on both sides was prepped and draped in the usual sterile fashion. Following this the appropriate time-out was completed confirming procedure and patient. We confirmed that all the needed equipment was present in the room. Following this the ultrasound probe was draped into the field and using the probe we carefully identified the carotid artery and jugular vein on the right neck. We then took a picture of the vascular anatomy of the neck and transferred from the ultrasound to the Cura TV chart. I marked the skin directly over the Rt. internal jugular vein. I then used an 11 blade knife to make a small julien in the skin. Following this, using the continuous ultrasound guidance, a Cook needle was placed through the skin incision and on into this vein. I then was able to draw back good dark blood. Once this was completed a guidewire using a J-tip was advanced through the needle and then the needle and the guidewire cover were withdrawn. C-arm fluoroscopy was used to confirm that the guidewire was nicely in the venous system. Once this was confirmed with the C - arm, I preceded on by making the pocket for the port on the patient's anterior right chest approximately 3 centimeters below the clavicle overlying the chest wall. Local anesthetic was infiltrated into the skin where there was a transverse incision marked out. Incision was made and we made a pocket inferior to the incision with just a little dissection superior. The Bard low-profile port was tried in the pocket and seemed to fit well. Following this the catheter which had been placed on a tunneling device was tunneled from the port site on the anterior right chest up to the right neck where the small incision had been made slightly larger with an #11 blade knife. Then the catheter was pulled through so that we would have 15 centimeters to put into the central venous system once the dilation took place. Following this we placed the dilator and sheath over the guidewire in the jugular vein and carefully dilated the tract into the central venous system. The guidewire and dilator were then removed, carefully covering the end of the sheath to prevent air embolus. The end of the catheter which had been removed from the tunneling device and the tip checked was then inserted into the sheath and into the neck. I then carefully pulled the 2 arms of the tear-away sheath away as the speech pathologist assistant held the catheter in position with a DeBakey forceps. Following this we checked the position of the catheter with C-arm fluoroscopy confirming that the tip seemed to be in the distal superior vena cava near the junction with the right atrium. I felt that it was in good position and so the rest of the catheter was pulled down toward the feet into the port site. We then measured to the appropriate position to cut the catheter to attach it to the port stem. Then twin mulligan
[2021-02-04 10:05] VITALS: BP 89/54; PULSE 58; RESP 20; O2SAT 94
[2021-02-04 10:20] VITALS: BP 104/65; PULSE 54; RESP 18
[2021-02-04 10:35] VITALS: BP 105/65; PULSE 55; RESP 18
[2021-02-04 10:50] VITALS: BP 120/69; PULSE 67; RESP 20
== END 2021-02-04 11:00 | disposition home or self-care (01) ==
PROVIDERS: PCP Family Medicine; Visit Provider Surgery
PROC: (CPT 36561; principal; 2021-02-04 09:00)
DX: C79.31 Secondary malignant neoplasm of brain (principal); C43.61 Malignant melanoma of right upper limb, including shoulder; E78.2 Mixed hyperlipidemia; E11.9 Type 2 diabetes mellitus without complications; K21.9 Gastro-esophageal reflux disease without esophagitis
CPT/HCPCS: 36561; 76937; 77001; C1788; J0690; J1644; J1885; J2250; J2704; J3010; J7030; J7120

== ENCOUNTER 2021-03-05 10:37 | Emergency (ER) | payer MEDICARE, SELFPAY ==
[2021-03-05 11:21] VITALS: BP 111/76; PULSE 53; RESP 14; TEMP 36.9; O2SAT 99
[2021-03-05 11:26] LABS: Glucose Point of Care > 500 mg/dl (65-105)
[2021-03-05 11:36] VITALS: BP 129/75; PULSE 48; RESP 16; O2SAT 96
[2021-03-05 12:06] LABS: Hematocrit 43.3 % (42.0-52.0); Hemoglobin 15.1 g/dL (14.0-18.0); Immature Platelet Fraction Pct 6.3 % (0.9-11.2); Mean Corpuscular HGB Conc 34.9 g/dl (32-36); Mean Corpuscular Hemoglobin 31.7 pg (26-34); Mean Platelet Volume 10.7 fl (7.4-10.4); Platelet Count Result 100 k/mm3 (150-375); Red Blood Count 4.76 M/mm3 (4.6-6.20); White Blood Count 10.8 K/mm3 (4.5-10.0)
[2021-03-05 12:38] LABS: Add Urine Microscopic? YES; Appearance Urine Clear (Clear); Bilirubin Urine Negative (Negative); Blood Urine Negative (Negative); Color Urine Straw (Yellow); Glucose Urine UA 3+ mg/dL (Negative); Ketones Urine Trace mg/dL (Negative); Leukocyte Esterase Ur Negative LEU/UL (Negative); Nitrate Urine Negative (Negative); Protein Urine Negative (Negative); RBC Urine 0-2 /hpf (0-2); Urobilinogen Urine Negative mg/dL (<2.0); WBC Urine 0-3 /hpf
[2021-03-05 12:40] LABS: Alanine Aminotransferase 539 U/L (4-50); Albumin Level 3.8 g/dL (3.5-5.1); Alkaline Phosphatase 69 U/L (38-126); Anion Gap 11 mmol/L (8-16); Aspartate Amino Transferase 46 U/L (17-59); Bilirubin,Total 1.3 mg/dL (0.2-1.3); Blood Urea Nitrogen 34 mg/dL (9-20); Calcium 9.5 mg/dL (8.4-10.2); Carbon Dioxide 21 mmol/L (22-30); Chloride 97 mmol/L (98-107); Estimated CRCL calculation 94 ml/min; Estimated Glomerular Filt Rate > 60; Glucose 570 mg/dL (65-110); Magnesium 2.4 mg/dL (1.6-2.3); Phosphorus 3.6 mg/dL (2.5-4.5); Potassium 4.5 mmol/L (3.4-5.0); Sodium 129 mmol/L (137-145)
[2021-03-05 13:04] LABS: Specific Grav Ur 1.037 (1.001-1.035)
[2021-03-05] MEDS: INSULIN HUMAN REGULAR (*BKC) 100 UNITS/ML IV PUSH (13:19)
[2021-03-05] MEDS: LACTATED RINGERS 1,000 ML 999 ML IV CONT (13:22)
--- NOTE | 2021-03-05 13:25 | ED.RECABL ---
HPI - Recheck/Abnormal Lab/Rx General Chief Complaint: Recheck/Abnormal Lab/Rx Stated Complaint: high blood sugar/pressure Time Seen by Provider: 03/05/21 12:22 Source: patient and family Mode of arrival: ambulatory Limitations: no limitations History of Present Illness HPI narrative: 65-year-old male He is being treated for metastatic melanoma, currently with chest and brain mets He was at the infusion center for a treatment and his blood sugar was high so he was sent to the ED He does not have a history of diabetes However he is currently on a high-dose of dexamethasone, 4 mg 3 times a day, and is slated to taper to 4 mg twice a day beginning tomorrow He has reported polydipsia and polyuria and getting up maybe 3 or 4 times a night to go to the bathroom for about the last 2 weeks Otherwise he does not have any new complaints Related Data Home Medications Medication Instructions Recorded Confirmed levetiracetam 500 mg/5 mL (5 mL) 500 mg PO Q12H 01/18/21 02/12/21 oral solution dexamethasone TID 03/05/21 Allergies Allergy/AdvReac Type Severity Reaction Status Date / Time No Known Allergies Allergy Verified 03/05/21 11:37 Review of Systems Review of Systems: All systems reviewed & are unremarkable except as noted in HPI and below Constitutional: Constitutional: Reports no additional constitutional complaints, Denies chills, Reports fatigue, Denies fever(s) and Denies headache(s) Eyes: Eyes: Reports no additional eye complaints and Denies change in vision ENT: Denies headache(s) and Denies sore throat Cardiovascular: Cardiovascular: Denies chest pain and Denies dyspnea Respiratory: Respiratory: Denies cough and Denies dyspnea Gastrointestinal: Gastrointestinal: Denies abdominal pain, Denies diarrhea, Denies nausea and Denies vomiting Genitourinary: Genitourinary: Denies dysuria and Reports urinary frequency Musculoskeletal: Musculoskeletal: Denies deformity, Denies arthralgias, Denies joint swelling and Denies numbness Integumentary/Breasts: Skin/Breast: Denies rash and Denies wounds Neurologic: Denies headache(s), Denies focal weakness and Denies numbness Psychiatric: Psychiatric: Reports no additional psychiatric complaints Endocrine: Endocrine: Reports no additional endocrine complaints, Reports polydipsia and Reports polyuria Hematologic/Lymphatic: Hematologic/Lymphatic: Reports as per HPI Allergic/Immunologic: Allergic/Immunologic: Reports no additional allergic/immunologic complaints [facility] Past Medical History Medical History (Updated 03/05/21 @ 13:41 by Jean Mckeon MD) Actinic keratoses BMI 28.0-28.9,adult Brain tumor x5 Colon polyp GERD (gastroesophageal reflux disease) High cholesterol History of basal cell carcinoma (BCC) History of melanoma 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 (Unknown) Mixed hyperlipidemia Obesity Screen for colon cancer Screening PSA (prostate specific antigen) Type 2 diabetes mellitus without complications Surgical History Surgical History History of melanoma excision Family History Family History Mother Family history of diabetes mellitus in first degree relative Family history of coronary artery disease Family history of malignant neoplasm of ovary Father Family history of diabetes mellitus in first degree relative Family history of coronary artery disease Diabetes mellitus Social History Social History Smoking status: Never smoker Alcohol intake: current Alcohol use details: ONE DRINK PER MONTH Spiritual care concerns: No Exam Const: General: cooperative, no acute distress and alert Orientation/consciousness: patient oriented x3 (alert) HENMT: Head: normal to inspection, normocephalic and atraumatic Ears: external ears normal General nose exam: no epist
[2021-03-05 13:34] VITALS: BP 132/80; PULSE 51; RESP 22; O2SAT 97
[2021-03-05 14:02] LABS: Glucose Point of Care 356 mg/dl (65-105)
[2021-03-05 15:47] VITALS: BP 120/77; PULSE 50; RESP 24; O2SAT 97
[2021-03-05 16:29] VITALS: BP 115/82; PULSE 48; RESP 20; O2SAT 98
[2021-03-05] MEDS: HEPARIN SODIUM LOCK FLUSH 500 UNITS/5 ML VIAL 100 UNITS IV PUSH (16:29)
== END 2021-03-05 16:43 | disposition home or self-care (01) ==
PROVIDERS: Emergency Medicine; Emergency Provider Emergency Medicine; PCP Family Medicine
DX: R73.9 Hyperglycemia, unspecified (principal); C43.9 Malignant melanoma of skin, unspecified; C79.31 Secondary malignant neoplasm of brain; C79.2 Secondary malignant neoplasm of skin; E78.00 Pure hypercholesterolemia, unspecified; E78.2 Mixed hyperlipidemia; K21.9 Gastro-esophageal reflux disease without esophagitis; Z86.010 Personal history of colon polyps
CPT/HCPCS: 36415; 80048; 80053; 81001; 82010; 82948; 83735; 84100; 84443; 85025; 85055; 96361; 96374; 99213; 99284; G0463; J1642; J1815; J7120

== ENCOUNTER → 2021-03-08 08:57 | Outpatient (REF) | payer MEDICARE, SELFPAY | LOC: ANHLAB 08:57 | PROVIDERS: PCP Family Medicine; Visit Provider Surgery Plastic and Reconstructive Surgery | DX: C43.62 Malignant melanoma of left upper limb, including shoulder (principal) | CPT/HCPCS: 88305; 88342 ==

== ENCOUNTER 2021-04-05 00:53 | Day surgery (SDC) | payer MEDICARE, SELFPAY ==
[2021-03-31 14:28] VITALS: BMI 28.5
[2021-04-05] VITALS (8 sets, daily range): BP systolic 94–137; BP diastolic 60–68; PULSE 53–73; RESP 13–19; TEMP 36.3–36.9; O2SAT 96–100
--- NOTE | ~2021-04-05 | NM_ITS ---
EXAMINATION: NM sentinel node w imaging EXAM DATE: 04/05/2021 12:09 INDICATION: LT shoulder melanoma. TECHNIQUE: 0.461 mCi Tc-99m Lymphoseek was injected to left shoulder melanoma biopsy site which was j ust posterior lateral to the humeral head level. This was done in 2 separate aliquots anterior and po sterior to the biopsy site. FINDINGS: Planar images demonstrate intense activity at the injection site. There was activity ident ified within a left axillary sentinel lymph node which was marked by the technologist. IMPRESSION: Left axillary sentinel lymph node identified, marked. Reviewed, dictated and finalized at location A.
[2021-04-05 10:36] LABS: Glucose Point of Care 128 mg/dl (65-105)
--- NOTE | 2021-04-05 10:51 | SUR.PREOP ---
PT TO NUCLEAR MED TO [id number]
[2021-04-05] MEDS: LACTATED RINGERS 1,000 ML 30 ML IV CONT ×2 (11:50→13:53)
--- NOTE | 2021-04-05 11:59 | SUR.PREOP ---
1150 PT RETURNED FROM NUCLEAR MED PER STRETCHER.
--- NOTE | 2021-04-05 12:22 | WPDANESEPPF ---
Anes - Initial Pre Proc Eval Procedure: Operation Date: 04/05/21 12:00 Proposed Procedures p Excision Melanoma Left Shoulder with [place] Lymph Node Biopsy - Anish Kuo MD Date/Time: 04/05/21 12:22 Surgeon: Anish Kou MD Pre Op Diagnosis: melanoma left shoulder Patient Data Age: 65 Gender: M Height: 1.73 m Weight: 79.6 kg Last Vital Signs Temp 36.9 C 04/05/21 09:54 Pulse 73 04/05/21 09:54 Resp 18 04/05/21 09:54 BP 94/64 L 04/05/21 09:54 Pulse Ox 100 04/05/21 09:54 Allergies Allergy/AdvReac Type Severity Reaction Status Date / Time No Known Allergies Allergy Verified 04/05/21 10:05 Home Medications Medication Instructions Recorded Confirmed Type ondansetron 4 mg disintegrating 4 mg PO Q8H PRN #10 tablet 02/02/21 04/05/21 Rx tablet blood sugar diagnostic #100 ea 03/08/21 Rx blood-glucose meter #1 ea 03/08/21 03/08/21 Rx lancets #100 ea 03/08/21 03/08/21 Rx pen needle, diabetic 32 gauge x #100 ea 03/08/21 03/08/21 Rx insulin lispro 100 unit/mL See Rx Instructions SUBCUT .QAC & 03/10/21 04/05/21 Rx subcutaneous pen QHS #3 ml MDD 80 lancets #200 ea 03/29/21 Rx levetiracetam 250 mg PO BID 03/31/21 04/05/21 History oxycodone 5 mg/5 mL oral solution 5 mg PO Q6H PRN #200 ml 04/05/21 Rx Laboratory Tests 04/05/21 10:30 POC Capillary Glucose 128 mg/dl H mg/dl (65-105) Patient hx anesthesia problems: none Family hx anesthesia problems: none Results Review: All pre-operative results and documents have been reviewed as part of the pre-operative evaluation. [facility] Past Medical History Medical History Actinic keratoses BMI 27.0-27.9,adult BMI 28.0-28.9,adult Brain tumor x5 Colon polyp Diabetes mellitus, drug-related GERD (gastroesophageal reflux disease) High cholesterol History of basal cell carcinoma (BCC) History of melanoma 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 (Unknown) Mixed hyperlipidemia Obesity Screen for colon cancer Screening PSA (prostate specific antigen) Surgical History Surgical History History of melanoma excision Family History Family History Mother Family history of diabetes mellitus in first degree relative Family history of coronary artery disease Family history of malignant neoplasm of ovary Father Family history of diabetes mellitus in first degree relative Family history of coronary artery disease Diabetes mellitus Social History Social History Smoking status: Never smoker Alcohol intake: former Alcohol use details: DRANK SOCIALLY IN PAST Substance use: never Living arrangements: with family Additional living arrangements comments: Spiritual care concerns: No Anes - Eval Final PreProcedure Day of Procedure 04/05/21 12:22 Patient weight: overweight Heart: regular rate and rhythm Lungs: clear to auscultation Airway: Mallampati scale class II Neurological: alert and oriented Last oral intake: >/= 8 hours ASA classification: III Emergent: no Anesthetic plan: proceed Anesthesia type and monitoring: general ETT and standard monitoring Results Review: All pre-operative results and documents have been reviewed as part of the pre-operative evaluation. Informed Consent: The patient's anesthetic plan and its attendant risks and benefits were discussed with the patient/family/POA. Questions were solicited and answers provided to the satisfaction of the patient/family/POA.
--- NOTE | 2021-04-05 12:39 | WPDHPUPDATE1 ---
History and Physical Update Update Date/Time: 04/05/21 12:39 History and Physical has been reviewed, including an updated exam of the patient. There are NO changes in the patient's condition. Risks, benefits, and alternatives have been discussed and questions answered. Patient agrees to proceed with procedure.
[2021-04-05] MEDS: ceFAZolin 2 GM/D5W 50 ML 2 GM/50 ML BAG IVPB (12:45)
[2021-04-05] MEDS: LIDO 1%/EPINEPHRINE 1:100,000 50 ML VIAL 15 ML INFILTRATE (13:33)
[2021-04-05] MEDS: BUPIVACAINE HCL 0.25% PF 30 ML VIAL 15 ML INFILTRATE (13:34)
--- NOTE | 2021-04-05 13:37 | W.PM.PROC2 ---
Procedure Note - Detailed Date of Procedure 04/05/21 Pre-op Diagnosis melanoma left shoulder Post-op Diagnosis same Procedure Performed 1. Wide excision left shoulder melanoma 5.5cm 2. Left axillary SLN biopsy Surgeon Anish Kuo MD Anesthesia general Indications Patient with metastatic melanoma. New primary left shoulder. A. SKIN LESION OF LEFT SHOULDER, PUNCH BIOPSY: - MALIGNANT MELANOMA, NODULAR TYPE, WITHOUT ULCERATION, WITH MAXIMUM DEPTH OF INVASION OF 2.0 MM (SEE COMMENT). Previously we have discussed his treatment course with Medical Oncology, primary care, patient and his . This is been lengthy open ended conversation discussing how to proceed given his current treatment status as well as diagnosis. This was discussed extensively again today with him and his . They would like proceed with wide excision and sentinel node biopsy. Description of Procedure Patient was marked in the preoperative holding area with him and his 's verification. Prior to surgery he had been injected with radionucleotide and nuclear Medicine. This identified a left axillary sentinel node. He was taken to the operating room. Anesthesia provided by anesthesiology. He was placed into a lateral decubitus position. Prepped and draped in a standard sterile fashion. First we proceeded with the sentinel node. I used the probe to identify the point of maximal count. 1% lidocaine and 0.25% Marcaine with epinephrine was used anesthetize locally. Dissection was continued down until the node was identified and removed. The background was well less than 10% of this sentinel node which was sent to pathology. No atypical findings noted on the node. This was closed using 2-0 Vicryl followed by 3-0 Monocryl in a running subcuticular 4-0 Monocryl and tissue glue. We then proceeded to the shoulder. I marked out greater than 2 cm margins. 1% lidocaine and 0.25% Marcaine with epinephrine was used anesthetize locally. Incising greater than 2 cm clinical margins dissection was continued down until just above the fascia and removed. A verified strict hemostasis. I closed using 2-0 Stratafix followed by 3-0 Stratafix in a running subcuticular 4-0 Monocryl and tissue glue. He was woken taken to the PACU without difficulty. All instrument sponge counts were correct at the end of the case. Estimated Blood Loss 10 Drains No Packing No Pathology yes (Left shoulder melanoma as well as left axillary sentinel lymph node.) Complications No immediate complications Condition stable Disposition PACU
[2021-04-05 14:08] LABS: Glucose Point of Care 94 mg/dl (65-105)
[2021-04-05] MEDS: ONDANSETRON INJ 4 MG/2 ML VIAL IV PUSH (15:17)
--- NOTE | 2021-04-05 16:01 | SUR.PHASEII ---
Vitals are stable and patient is unhooked from the monitors. He just waiting to get dressed and go home.
== END 2021-04-05 16:22 | disposition home or self-care (01) ==
PROVIDERS: PCP Family Medicine; Visit Provider Surgery Plastic and Reconstructive Surgery
PROC: (CPT 11606; principal; 2021-04-05 12:00)
DX: C43.62 Malignant melanoma of left upper limb, including shoulder (principal); C78.00 Secondary malignant neoplasm of unspecified lung; C79.31 Secondary malignant neoplasm of brain; Z92.3 Personal history of irradiation; Z79.899 Other long term (current) drug therapy; E09.9 Drug or chemical induced diabetes mellitus without complications; Z79.4 Long term (current) use of insulin; E78.5 Hyperlipidemia, unspecified; E78.00 Pure hypercholesterolemia, unspecified; K21.9 Gastro-esophageal reflux disease without esophagitis; Z85.828 Personal history of other malignant neoplasm of skin
CPT/HCPCS: 11606; 12032; 38500; 78195; 82948; 88305; 88307; 88342; A9520; J0690; J2250; J2270; J2405; J2704; J7120

== ENCOUNTER 2021-04-06 22:29 | Inpatient (IN) | payer MEDICARE, SELFPAY ==
[2021-04-06] VITALS (7 sets, daily range): BP systolic 125–129; BP diastolic 74–87; PULSE 68–76; RESP 16–21; TEMP 36.8; O2SAT 97–98
--- NOTE | ~2021-04-06 | MR_ITS ---
EXAMINATION: MR cervical spine wo/w con EXAM DATE: 04/08/2021 13:18 INDICATION: Malignant melanoma. TECHNIQUE: Multi-sequential, multiplanar MR images of the cervical spine were obtained without contra st. Axial T2, axial T2 MERGE sequence. Sagittal T1, T2, T2 fat saturation images also obtained. Axi al T1 weighted sequence. Patient was then injected with 16 mL Multihance intravenous contrast and re imaged. Postcontrast axial and sagittal T1-weighted fat saturation sequences were obtained. There i s no prior study for comparison. FINDINGS: There is moderate disc disease at C6-7, mild at the mid cervical levels. The spinal cord s ignal intensity and intrinsic morphology is normal. Cervicomedullary junction is normal in appearance . The vertebral bodies are aligned in the AP dimension. There are no suspicious marrow signal abnorma lities. Paraspinal soft tissue is unremarkable. There are no areas of abnormal enhancement on the po st contrast images. Level by level evaluation: C2-C3: Disc does not extend beyond the endplate margin. Uncovertebral joint arthropathy: None. Facet joint arthropathy: Mild to moderate bilateral. Neural foraminal stenosis: No stenosis. Central canal stenosis: No stenosis. C3-C4: Disc does not extend beyond the endplate margin. Uncovertebral joint arthropathy: Mild left. Facet joint arthropathy: Moderate to severe bilateral. Neural foraminal stenosis: Mild bilateral. Central canal stenosis: No stenosis. C4-C5: There is a minimal diffuse disc bulge. Uncovertebral joint arthropathy: Mild to moderate right, mild left. Facet joint arthropathy: Moderate to severe right, moderate left. Neural foraminal stenosis: No stenosis. Central canal stenosis: No stenosis. C5-C6: There is a mild diffuse disc bulge. Uncovertebral joint arthropathy: Moderate bilateral. Facet joint arthropathy: Moderate to severe bilateral. Neural foraminal stenosis: Moderate to severe right, moderate left. Central canal stenosis: Mild. C6-C7: There is a mild diffuse disc bulge. Uncovertebral joint arthropathy: Moderate to severe right, mild to moderate left. Facet joint arthropathy: Mild bilateral. Neural foraminal stenosis: Moderate to severe right, mild left. Central canal stenosis: No stenosis. C7-T1: Disc does not extend beyond the endplate margin. Uncovertebral joint arthropathy: Mild to moderate bilateral. Facet joint arthropathy: Mild bilateral. Neural foraminal stenosis: No stenosis. Central canal stenosis: No stenosis. IMPRESSION: 1. C5-6 and 6-7 moderate to severe right neural foraminal stenosis. 2. Less spondylosis other levels. 3. No evidence cervical metastatic disease. Reviewed, dictated and finalized at location A.
--- NOTE | ~2021-04-06 | MR_ITS ---
EXAMINATION: MR brain/brain stem wo/w con EXAM DATE: 04/07/2021 16:14 INDICATION: Brain lesions. Bilateral weakness. TECHNIQUE: Magnetic resonance imaging (MRI) of the brain/brain stem obtained without contrast. Sagit lauryn T1, axial diffusion, gradient echo (T2*), T1, T2, FLAIR sequences obtained. Patient was then inj ected with 15 cc intravenous Multihance contrast. Axial and coronal postcontrast T1 weighted sequence s obtained. Correlation is made to head CT from 04/06/2021. FINDINGS: There are approximately 8 supratentorial metastatic lesions identified with regions of incr eased T1 signal intensity, consistent with metastatic melanoma. Centimeters these have decreased in size, some increased compared to older prior study from December. There is associated vasogenic edema, mo stly from the left parietal lobe lesion which is measuring about 2.1 cm. Another sizable lesion and a ssociated cystic region is in the right occipital lobe. Smaller lesions in the left caudate, right th alamus, right parietal lobe. No acute infarction. No extra-axial collections or obstructive hydroceph alus. T1 hyperintense material and gradient echo susceptibility which could be from L1 melanin, but s ome amount of blood products not excludable. IMPRESSION: 1. Scattered supratentorial metastatic melanoma. 2. No acute findings suspected. Reviewed, dictated and finalized at location A.
--- NOTE | ~2021-04-06 | MR_ITS ---
EXAMINATION: MR thoracic spine wo/w con EXAM DATE: 04/08/2021 13:19 INDICATION: Malignant melanoma. TECHNIQUE: Multi-sequential, multiplanar MR images of the thoracic spine were obtained without contra st. Sagittal T1, T2, T2 fat saturation, axial T2 weighted images reviewed. Axial T1 weighted sequenc e. Patient was then injected with 16 mL Multihance intravenous contrast and reimaged. Postcontrast axial and sagittal T1-weighted fat saturation sequences were obtained. There are no prior studies for comparison. FINDINGS: There is mild mid and lower thoracic disc disease with small Schmorl's nodes. There are no suspicious marrow signal abnormalities. Paraspinal soft tissue is unremarkable. The spinal cord signa l intensity and intrinsic morphology is normal. No appreciable scoliosis. There are no areas of abnor mal enhancement on the post contrast images. No central canal or neural foraminal stenosis. Mild dif fuse thoracic facet arthropathy. IMPRESSION: Mild thoracic spondylosis. No evidence of metastatic disease. Reviewed, dictated and finalized at location A.
--- NOTE | ~2021-04-06 | CT_ITS ---
EXAMINATION: CT brain wo con DATE: 04/06/2021 23:16 INDICATION: Paresis. History of brain cancer. TECHNIQUE: Computed tomography (CT) of the head was performed without intravenous contrast. The mA wa s adjusted according to patient size. Iterative reconstruction technique was employed. Exam dose: 60 5.33 mGy-cm total exam DLP. COMPARISON: CTA brain carotid FINDINGS: There are multiple brain metastases, some new, some enlarged and some smaller compared to . There is a prominent area of encephalomalacia in the right occipital lobe at the site of a prior meta stasis and reported hematoma. Diminished size of right thalamic metastasis from 13 mm to 9.5 mm since 12/15/2020. Increased size of a high left parietal mass currently measuring 17 mm compared to 13 mm previously, w ith surrounding vasogenic edema. There are small right frontal and right parietal and left head of ca udate nucleus metastases. No midline shift is noted. Normal ventricular size. No intracranial hemorrhage. No subdural or epidur al hematoma. No fracture or bone destruction of the cranial vault. The mastoid air cells and included paranasal si nuses are unremarkable. IMPRESSION: Multiple intracranial metastases with some areas of improvement and some areas of new me tastases and increased size of metastasis since 12/15/2020 Reviewed, dictated and finalized at Location A. Reviewed, dictated and finalized at location A. IMPRESSION: Multiple intracranial metastases with some areas of improvement an d some areas of new metastases and increased size of metastasis since 12/15/2020
--- NOTE | ~2021-04-06 | MR_ITS ---
EXAMINATION: MR lumbar spine wo/w con EXAM DATE: 04/08/2021 13:19 INDICATION: Malignant melanoma. Brain metastases. TECHNIQUE: Multi-sequential, multiplanar MR images of the lumbar spine were obtained without contrast . Sagittal T1, T2, T2 fat saturation images. Axial T2 weighted images. Axial T1 weighted sequence. Patient was then injected with 16 mL Multihance intravenous contrast and reimaged. Postcontrast axi al and sagittal T1-weighted fat saturation sequences were obtained. There are no prior studies for co mparison. FINDINGS: Mildly bulging L5-S1 disc, with disc and vertebral body heights of lumbar spine maintained. The conus medullaris terminates at the L1/2 level and has normal signal intensity and morphology. T here are no suspicious marrow signal abnormalities. There is mild to moderate lower lumbar facet arth ropathy. The vertebral bodies are aligned in the AP dimension. Paraspinal soft tissue is unremarkable . There are no areas of abnormal enhancement on the post contrast images. IMPRESSION: Mild lumbar spondylosis. No evidence metastatic disease. Reviewed, dictated and finalized at location A.
--- NOTE | ~2021-04-06 | CT_ITS ---
EXAMINATION: CT cervical spine wo con DATE: 04/06/2021 23:17 INDICATION: Weakness. Brain cancer. TECHNIQUE: Computed tomography (CT) of the cervical spine was performed without intravenous contrast. Automated exposure control and iterative reconstruction technique were employed. Exam dose: 470.84 mGy-cm total exam DLP. COMPARISON: None FINDINGS: Approximately 7 mm left apical soft tissue mass, likely due to metastasis. C1 and C2 are normally aligned and the odontoid process is intact. No fracture or dislocation or locked facet or prevertebral soft tissue swelling. No bone destruction of the cervical spine is detected. There is severe degenerative disc disease at C6-7 and mild to moderate degenerative disc disease at t he remaining cervical interspaces, minimal associated retrolisthesis at C3-4 and C4-5 and C5-6. IMPRESSION: Cervical spondylosis, severe degenerative disc disease at C6-7; no fracture, dislocation or locked facet or bone destruction Probable 7 mm left apical pulmonary metastasis Reviewed, dictated and finalized at Location A. Reviewed, dictated and finalized at location A.
--- NOTE | 2021-04-06 22:48 | ECG_ITS ---
Measurements Intervals [place] Rate: 68 P: 22 DE: 132 QRS: -8 QRSD: 101 T: 47 QT: 407 QTc: 435 Interpretive Statements SINUS RHYTHM BASELINE ARTIFACT- I, II, III, AVR, AVL, AVF, V1-V6 NORMAL ECG Electronically Signed On 04-07-2021 6:41:59 CDT by Adrián Malagon D.O.
--- NOTE | 2021-04-06 22:56 | ED.GENADULT ---
HPI - General Adult General Chief complaint: Weakness Stated complaint: leg weakness Time Seen by Provider: 04/06/21 22:39 Source: patient History of Present Illness HPI narrative: Patient is a 65 y/o male complaining severe bilateral weakness starting sometime this afternoon. He is not sure of the exact time of onset. There is no known alleviating or exacerbating factor. He states that he fell due to weakness. He did not experience any pain or injury due to the fall. He is currently undergoing treatment for metastatic melanoma. He had chemo and immunotherapy. Related Data Home Medications Medication Instructions Recorded Confirmed levetiracetam 250 mg PO BID 03/31/21 04/05/21 Allergies Allergy/AdvReac Type Severity Reaction Status Date / Time No Known Allergies Allergy Verified 04/06/21 22:39 Review of Systems Constitutional: Constitutional: Denies chills, Denies fever(s), Denies headache(s) and Reports weakness Eyes: Eyes: Denies blurry vision ENT: Denies headache(s) and Denies neck pain Cardiovascular: Cardiovascular: Denies chest pain and Denies dyspnea Respiratory: Respiratory: Denies cough and Denies dyspnea Gastrointestinal: Gastrointestinal: Denies abdominal pain, Reports diarrhea, Denies nausea, Denies vomiting and Reports other (rectal pain) Genitourinary: Genitourinary: Denies hematuria and Denies dysuria Musculoskeletal: Musculoskeletal: Denies back pain and Denies neck pain Neurologic: Denies headache(s) and Reports weakness PMFSH Past Medical History Medical History Actinic keratoses BMI 27.0-27.9,adult BMI 28.0-28.9,adult Brain tumor x5 Colon polyp Diabetes mellitus, drug-related GERD (gastroesophageal reflux disease) High cholesterol History of basal cell carcinoma (BCC) History of melanoma 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 (Unknown) Mixed hyperlipidemia Obesity Screen for colon cancer Screening PSA (prostate specific antigen) Surgical History Surgical History History of melanoma excision Family History Family History Mother Family history of diabetes mellitus in first degree relative Family history of coronary artery disease Family history of malignant neoplasm of ovary Father Family history of diabetes mellitus in first degree relative Family history of coronary artery disease Diabetes mellitus Social History Social History Smoking status: Never smoker Alcohol intake: former Alcohol use details: DRANK SOCIALLY IN PAST Substance use: never Additional living arrangements comments: Spiritual care concerns: No Exam Const: General: no acute distress and well developed Orientation/consciousness: oriented to person, oriented to place, oriented to time and patient oriented x3 HENMT: Head: normocephalic Ears: external ears normal General nose exam: Normal external nose present Eyes: General: appearance normal, both eyes and all related structures Conjunctivae: conjunctivae normal Neck: Neck: normal visual inspection and full ROM Chest: Chest palpation & inspection: normal inspection of the chest and no tenderness Resp: Effort & Inspection: normal respiratory effort Auscultation: clear to auscultation bilaterally Cardio: Rate: regular rate Rhythm: regular rhythm GI: GI Palp: No abdominal tenderness and Yes Soft to palpation Rectal Exam: hemorrhoids (ext hemorrhoids noted) Skin: General skin exam: normal color and turgor normal Neuro: General: oriented to person, oriented to place, oriented to time and patient oriented x3 Cognition (Neuro): normal cognition Motor exam (neuro): Abnormal motor strength present (motor strength 3/5 both legs, 4/5 both arms) Extrem: General: normal to inspection, full ROM and no pedal edema Psych: Appe
[2021-04-06 23:30] LABS: Hematocrit 41.9 % (42.0-52.0); Hemoglobin 14.5 g/dL (14.0-18.0); Mean Corpuscular HGB Conc 34.6 g/dl (32-36); Mean Corpuscular Hemoglobin 32.6 pg (26-34); Mean Corpuscular Volume 94.2 fl (80-100); Mean Platelet Volume 8.7 fl (7.4-10.4); Platelet Count Result 178 k/mm3 (150-375); Red Blood Count 4.45 M/mm3 (4.6-6.20); Red Cell Distribution Width 13.8 % (11.5-14.5); White Blood Count 6.3 K/mm3 (4.5-10.0)
[2021-04-06 23:59] LABS: Band Neutrophils Percent 23 % (0-6); Lymphocytes Absolute Manual 0.75 K/mm3 (1.1-4.5); Metamyelocytes Percent 1 %; Monocytes Absolute Manual 0.69 K/mm3 (0.1-0.90); Monocytes Percent Manual 11 % (3-9); Neutrophils Absolute Manual 4.78 K/mm3 (1.3-6.7); Neutrophils Percent Manual 53 % (46-73); Total Cells Counted 100
[2021-04-07] LABS: Anisocytosis 1+ (NORMAL); Ovalocytes 1+ (NORMAL); Platelet Estimate Adequate (Adequate); Toxic Granulation Present (NORMAL)
[2021-04-07] MEDS: ONDANSETRON INJ 4 MG/2 ML VIAL IV PUSH (00:04)
[2021-04-07 00:20] LABS: Alanine Aminotransferase 28 U/L (4-50); Albumin Level 2.8 g/dL (3.5-5.1); Alkaline Phosphatase 81 U/L (38-126); Anion Gap 9 mmol/L (8-16); Aspartate Amino Transferase 26 U/L (17-59); Blood Urea Nitrogen 10 mg/dL (9-20); Calcium 8.8 mg/dL (8.4-10.2); Carbon Dioxide 24 mmol/L (22-30); Chloride 106 mmol/L (98-107); Estimated CRCL calculation 94 ml/min; Estimated Glomerular Filt Rate > 60; Glucose 148 mg/dL (65-110); Sodium 139 mmol/L (137-145)
[2021-04-07 01:41] VITALS: BMI 25.2
[2021-04-07] MEDS: SODIUM CHLORIDE 0.9% IV 1,000 ML 999 ML IV CONT (01:53)
[2021-04-07 01:58] VITALS: BP 122/71; PULSE 69; RESP 18; TEMP 36.9; O2SAT 98
--- NOTE | 2021-04-07 02:05 | ADMGEN ---
This patient, Flynn Gurrola, was admitted to [facility] Surg Room 331-01. Patient/family oriented to hospital policies and general routines including ID bracelet, bed and alarms, visiting hours, pain management, procedures, bathroom and other care routines, personal items, smoking policy, room service/diet, and visiting hours. Information on how to activate the Rapid Response Team has been discussed. Patient/Family are encouraged to report perceived risks to care and to ask questions if they do not understand what they are told or what they should do.
[2021-04-07] MEDS: POTASSIUM CHLORIDE 20 MEQ TABLET 40 MEQ PO (03:19)
[2021-04-07] MEDS: LORazepam INJ (*CRX) 2 MG/ML VIAL 0.5 MG IV PUSH ×2 (03:58→08:46)
[2021-04-07 04:00] VITALS: BP 122/72; PULSE 81; RESP 18; TEMP 37.2; O2SAT 96
[2021-04-07 06:00] VITALS: BP 122/72; PULSE 81; RESP 18; TEMP 37.2; O2SAT 96
--- NOTE | 2021-04-07 07:00 | PM.IMHP ---
H&P: HPI History of Present Illness Date/Time: 04/07/21 08:00 Chief Complaint: Lower extremity weakness Narrative: Patient is 65-year-old male with a past medical history of basal cell carcinoma, 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 Patient stated that it all started yesterday afternoon when he stood up and fell. He stated that his legs feel very heavy and jerky and his nerves or jumping. He is also been very nauseous lately and his appetite is been severely decreased. Patient also states when he stands that he gets very dizzy lightheaded. Patient has also been having lots of diarrhea which he is not sure if some medications or if he could possibly getting an infection. He is very anxious and really gets worked up with certain questions. He did state that he just has some lymph nodes removed from his arm/shoulder area last Monday. He was also concerned about getting all of his medications. He denies getting sleep in the last couple of days. Appetite has been very minimal which he is afraid to eat or drink since it causes him to have diarrhea. He did state that his appetite was better when he was taking steroids. He denies having chest pain, shortness of breath, sweats, fevers, chills, or urinary dysfunction. He can only move his legs about 1-2 inches off the bed. He denies palpitations, or recent antibiotic use over the last few months. He is really getting discouraged and worried about the next steps. He is also worried about his and her trying to take care of him in this condition. 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 (Unknown) Mixed hyperlipidemia Obesity Screen for colon cancer Screening PSA (prostate specific antigen) Surgical History Surgical History History of melanoma excision Family History Family History Mother Family history of diabetes mellitus in first degree relative Family history of coronary artery disease Family history of malignant neoplasm of ovary Father Family history of diabetes mellitus in first degree relative Family history of coronary artery disease Diabetes mellitus Social History Social History (Updated 04/07/21 @ 16:26 by KARO Stuart) Social History: Patient lives at home with his of 27 years who is also his surrogate. Her name is Annie. Patient has 2 children 1 boy 1 girl with 2 step kids. He also mentioned that his has breast cancer and had a lumpectomy. Patient lives here in town. Patient would like to be a DNR as he is getting wore out and tired of trying to fight this cancer. Smoking status: Never smoker Alcohol intake: former Alcohol use details: DRANK SOCIALLY IN PAST Substance use: never Living arrangements: with family Additional living arrangements comments: Occupation/Education: retired Additional occupation/education comments: [employer] for 40 years Gender identity (if verbalized by the patient): Male Sexual Orientation (if Verbalized by the Patient): Straight or Heterosexual Spiritual care concerns: Yes (Anabaptist) Agree to blood products: Yes Meds Home Medications and Allergies Home Medications Medication Instructions Recorded Confirmed Type ondansetron 4 mg disintegrating 4 mg PO Q8H PRN #10 tablet 02/02/21 04/07/21 Rx tablet blood sugar diagn
[2021-04-07 07:55] LABS: Hematocrit 41.3 % (42.0-52.0); Hemoglobin 14.2 g/dL (14.0-18.0); Mean Corpuscular HGB Conc 34.4 g/dl (32-36); Mean Corpuscular Hemoglobin 32.2 pg (26-34); Mean Corpuscular Volume 93.7 fl (80-100); Mean Platelet Volume 8.4 fl (7.4-10.4); Platelet Count Result 190 k/mm3 (150-375); Red Blood Count 4.41 M/mm3 (4.6-6.20); Red Cell Distribution Width 13.7 % (11.5-14.5); White Blood Count 5.3 K/mm3 (4.5-10.0)
[2021-04-07 08:07] LABS: Alanine Aminotransferase 34 U/L (4-50); Albumin Level 2.7 g/dL (3.5-5.1); Alkaline Phosphatase 77 U/L (38-126); Anion Gap 7 mmol/L (8-16); Aspartate Amino Transferase 39 U/L (17-59); Blood Urea Nitrogen 9 mg/dL (9-20); Calcium 8.7 mg/dL (8.4-10.2); Carbon Dioxide 20 mmol/L (22-30); Chloride 111 mmol/L (98-107); Estimated CRCL calculation 108 ml/min; Estimated Glomerular Filt Rate > 60; Glucose 144 mg/dL (65-110); Potassium 3.4 mmol/L (3.4-5.0); Sodium 138 mmol/L (137-145)
[2021-04-07 08:42] LABS: Band Neutrophils Percent 22 % (0-6); Eosinophils Absolute Manual 0.05 K/mm3 (0.02-0.5); Eosinophils Percent Manual 1 % (0-4); Monocytes Absolute Manual 0.42 K/mm3 (0.1-0.90); Monocytes Percent Manual 8 % (3-9); Neutrophils Absolute Manual 3.81 K/mm3 (1.3-6.7); Neutrophils Percent Manual 50 % (46-73); Nucleated Red Blood Cells 1 %; Platelet Estimate Adequate (Adequate); Total Cells Counted 100
[2021-04-07] MEDS: levETIRAcetam ORAL SOL 500 MG/5 ML UDC 250 MG PO ×2 (09:12→17:07)
[2021-04-07 10:06] VITALS: BMI 25.2
[2021-04-07] MEDS: LORazepam (*CRX) 0.5 MG TABLET PO (11:32)
--- NOTE | 2021-04-07 12:00 | WPDNEURCNPN ---
Assessment and Plan Additional Plan considering the symptomatology MRI of the cervical and thoracic spine would be warranted to rule out the possibility of the metastatic disease if those studies are negative he will benefit from the EMG and nerve conduction study and also from the rehab, his routine blood studies have revealed him to have WBC 5.3 ,hemoglobin 14.2 ,platelet count 190, serum potassium 3.4 borderline low, and glucose 144 UA with 3+ glucose. 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 he is never a smoker and only drank socially in the past 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 (Unknown) Mixed hyperlipidemia Obesity Screen for colon cancer Screening PSA (prostate specific antigen) Surgical History Surgical History History of melanoma excision Family History Family History Mother Family history of diabetes mellitus in first degree relative Family history of coronary artery disease Family history of malignant neoplasm of ovary Father Family history of diabetes mellitus in first degree relative Family history of coronary artery disease Diabetes mellitus Social History Social History Smoking status: Never smoker Alcohol intake: former Alcohol use details: DRANK SOCIALLY IN PAST Substance use: unknown Additional living arrangements comments: Spiritual care concerns: No Meds Home Medications and Allergies Home Medications Medication Instructions Recorded Confirmed Type ondansetron 4 mg disintegrating 4 mg PO Q8H PRN #10 tablet 02/02/21 04/07/21 Rx tablet blood sugar diagnostic #100 ea 03/08/21 Rx blood-glucose meter #1 ea 03/08/21 03/08/21 Rx lancets #100 ea 03/08/21 03/08/21 Rx pen needle, diabetic 32 gauge x #100 ea 03/08/21 03/08/21 Rx /32 insulin lispro 100 unit/mL See Rx Instructions SUBCUT .QAC & 03/10/21 04/07/21 Rx subcutaneous pen QHS #3 ml MDD 80 lancets #200 ea 03/29/21 Rx levetiracetam 250 mg PO BID 03/31/21 04/07/21 History oxycodone 5 mg/5 mL oral solution 5 mg PO Q6H PRN #200 ml 04/05/21 04/07/21 Rx Allergies Allergy/AdvReac Type Severity Reaction Status Date / Time No Known Allergies Allergy Verified 04/06/21 22:39 Vital Signs Vital Signs - 24 hr 04/06/21 22:32 04/06/21 22:38 04/06/21 22:45 Temperature 36.8 C Pulse Rate 74 74 Respiratory Rate 16 21 H Blood Pressure 126/74 Pulse Oximetry 98 98 98 04/06/21 22:46 04/06/21 23:00 04/06/21 23:01 Temperature Pulse Rate 76 68 70 Respiratory Rate 21 H Blood Pressure 129/87 125/80 Pulse Oximetry 98 98 98 04/06/21 23:20 04/07/21 01:58 04/07/21 04:00 Temperature 36.9 C 37.2 C Pulse Rate 71 69 81 Respiratory Rate 18 18 Blood Pressure 122/71 122/72 Pulse Oximetry 97 98 96 04/07/21 06:00 Temperature 37.2 C Pulse Rate 81 Respiratory Rate 18 Blood Pressure 122/72 Pulse Oximetry 96 Exam Narrative: examin
[2021-04-07 12:05] LABS: Glucose Point of Care 134 mg/dl (65-105)
--- NOTE | 2021-04-07 12:44 | PDONCCN ---
HPI - Date of Consult Date/Time: 04/07/21 12:44 Requesting Physician: Jameel Saini MD Primary Care Provider: Wilver Clifton MD - Consult Narrative Reason for consult: Metastatic melanoma Narrative: Flynn Gurrola is a 65 year old male with history of metastatic melanoma with brain involvement currently on immunotherapy treatment with ipilimumab and nivolumab. Last treatment was about 2 weeks ago. He came into the hospital with bilateral lower extremity weakness. He denies any headaches. He has been complaining of generalized tiredness and fatigue with stiffness in the muscles of the back. He denies any bleeding and bruising. Head CT showed multiple intracranial metastasis with some improvement and some area of new metastasis increased from previous study. CT cervical spine showed spondylosis. 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 Onset Date: Unknown Mixed hyperlipidemia Obesity Screen for colon cancer Screening PSA (prostate specific antigen) Surgical History: Surgical History (Last Reviewed 04/07/21 @ 12:02 by Jaleel Springer MD) History of melanoma excision Family History: Family History (Last Reviewed 04/07/21 @ 12:02 by Jaleel Springer MD) Mother Family history of diabetes mellitus in first degree relative Family history of coronary artery disease Family history of malignant neoplasm of ovary Father Family history of diabetes mellitus in first degree relative Family history of coronary artery disease Diabetes mellitus - Social History Social History: Social History (Last Reviewed 04/07/21 @ 12:02 by Jaleel Springer MD) Alcohol Use: Alcohol intake: former Alcohol use details: DRANK SOCIALLY IN PAST Substance Use: Substance use: unknown Others: Spiritual care concerns: No Smoking Status: Smoking status: Never smoker Meds Home Medications Medication Instructions Recorded Confirmed Type ondansetron 4 mg disintegrating 4 mg PO Q8H PRN #10 tablet 02/02/21 04/07/21 Rx tablet blood sugar diagnostic #100 ea 03/08/21 Rx blood-glucose meter #1 ea 03/08/21 03/08/21 Rx lancets #100 ea 03/08/21 03/08/21 Rx pen needle, diabetic 32 gauge x #100 ea 03/08/21 03/08/21 Rx /32 insulin lispro 100 unit/mL See Rx Instructions SUBCUT .QAC & 03/10/21 04/07/21 Rx subcutaneous pen QHS #3 ml MDD 80 lancets #200 ea 03/29/21 Rx levetiracetam 250 mg PO BID 03/31/21 04/07/21 History oxycodone 5 mg/5 mL oral solution 5 mg PO Q6H PRN #200 ml 04/05/21 04/07/21 Rx Allergies Allergy/AdvReac Type Severity Reaction Status Date / Time No Known Allergies Allergy Verified 04/06/21 22:39 Results - Labs CBC & Chem 7: 04/07/21 07:48 04/07/21 07:48 Labs: Short CBC 04/06/21 04/07/21 Range/Units 23:25 07:48 WBC 6.3 5.3 (4.5-10.0) K/mm3 Hgb 14.5 14.2 (14.0-18.0) g/dL Hct 41.9 L 41.3 L (42.0-52.0) % Plt Count 178 190 (150-375) k/mm3 [facility] 04/06/21 04/07/21 23:25 07:48 Sodium 139 138 Potassium 3.0 L 3.4 Chloride 106 111 H Carbon Dioxide 24 20 L BUN 10 D 9 Creatinine 0.70 0.60 L Glucose 148 H 144 H Calcium 8.8 8.7 Liver Function 04/06/21 04/07/21 Range/Units 23:25 07:48 Total Bilirubin 1.0 1.0 (0.2-1.3) mg/dL AST 26 39 (17-59) U/L ALT 28 34 (4-50) U/L Alkaline Phosphatase 81 77 (38-126) U/L Albumin 2.8 L 2.7 L (3.5-5.1) g/dL Assessment and Plan - Additional Plan Metastatic melanom
[2021-04-07] MEDS: DIPHENOXYLATE/ATROPINE (*CRX) 2.5 MG TABLET 1 TABLET PO (13:12)
[2021-04-07 14:00] VITALS: BP 114/67; PULSE 84; RESP 18; TEMP 37.4; O2SAT 96
--- NOTE | 2021-04-07 14:22 | PCOTNOTE ---
Attempted to see patient for OT evaluation this afternoon. Patient just finished working with PT. He declines more activity at this time stating he is waiting to get taken down for his MRI and doesn't feel like participating at this time. Will continue to attempt.
[2021-04-07 17:15] LABS: Glucose Point of Care 107 mg/dl (65-105)
[2021-04-07 19:33] LABS: Add Urine Microscopic? YES; Appearance Urine Cloudy (Clear); Bilirubin Urine Negative (Negative); Blood Urine Negative (Negative); Color Urine Amber (Yellow); Glucose Urine UA 1+ mg/dL (Negative); Ketones Urine Trace mg/dL (Negative); Leukocyte Esterase Ur Negative LEU/UL (Negative); Mucus Urine Heavy /lpf; Nitrate Urine Negative (Negative); Protein Urine 1+ mg/dL (Negative); Squamous Epithelial Cell Urine Rare /hpf (Few); Urobilinogen Urine Negative mg/dL (<2.0)
[2021-04-07 22:00] VITALS: BP 109/62; PULSE 77; RESP 16; TEMP 36.8; O2SAT 96
[2021-04-08 00:11] LABS: Glucose Point of Care 150 mg/dl (65-105)
[2021-04-08 06:00] VITALS: BP 95/58; PULSE 59; RESP 16; TEMP 36.7; O2SAT 96
[2021-04-08 06:19] LABS: Basophils Percent Auto 0.7 % (0.2-1.2); Eosinophils Absolute Auto 0.1 K/mm3 (0-0.3); Eosinophils Percent Auto 1.5 % (0-4.4); Hematocrit 37.1 % (42.0-52.0); Hemoglobin 12.4 g/dL (14.0-18.0); Immature Granulocyte Absolute 0.06 K/mm3 (0.00-0.031); Immature Granulocyte Percent A 1.1 % (0-0.5); Lymphocytes Absolute Auto 1.21 K/mm3 (0.9-3.2); Lymphocytes Percent Auto 22.7 % (18.3-44.2); Mean Corpuscular HGB Conc 33.4 g/dl (32-36); Mean Corpuscular Hemoglobin 32.2 pg (26-34); Mean Corpuscular Volume 96.4 fl (80-100); Mean Platelet Volume 9.5 fl (7.4-10.4); Monocytes Absolute Auto 0.9 K/mm3 (0.1-0.6); Monocytes Percent Auto 16.5 % (2.6-8.5); Neutrophils Absolute Auto 3.1 K/mm3 (1.3-6.7); Neutrophils Percent Auto 57.5 % (45.5-73.1); Platelet Count Result 164 k/mm3 (150-375); Red Blood Count 3.85 M/mm3 (4.6-6.20); Red Cell Distribution Width 14.2 % (11.5-14.5); White Blood Count 5.3 K/mm3 (4.5-10.0)
[2021-04-08 06:53] LABS: Alanine Aminotransferase 34 U/L (4-50); Albumin Level 2.4 g/dL (3.5-5.1); Alkaline Phosphatase 69 U/L (38-126); Anion Gap 4 mmol/L (8-16); Aspartate Amino Transferase 29 U/L (17-59); Bilirubin,Total 0.7 mg/dL (0.2-1.3); Blood Urea Nitrogen 9 mg/dL (9-20); Calcium 8.1 mg/dL (8.4-10.2); Carbon Dioxide 27 mmol/L (22-30); Chloride 109 mmol/L (98-107); Estimated CRCL calculation 127 ml/min; Estimated Glomerular Filt Rate > 60; Glucose 117 mg/dL (65-110); Potassium 2.6 mmol/L (3.4-5.0); Sodium 140 mmol/L (137-145)
[2021-04-08 08:22] LABS: Glucose Point of Care 108 mg/dl (65-105)
[2021-04-08] MEDS: levETIRAcetam ORAL SOL 500 MG/5 ML UDC 250 MG PO ×2 (09:25→16:22)
[2021-04-08] MEDS: POTASSIUM CHLORIDE 20 MEQ TABLET 40 MEQ PO (09:25)
[2021-04-08] MEDS: ENOXAPARIN 40 MG/0.4 ML SYRINGE SUB-Q (09:25)
--- NOTE | 2021-04-08 09:25 | PM.IMPN ---
Progress Note: A&P Assessment and Plan (1) Weakness: Code(s): R53.1 - Weakness Status: Acute Assessment and Plan: Melanoma noted in the brain and in multiple areas of the body PT/OT Could be from deconditioning Almost wonder if this is from an infection since the patient just had a lymph node taken out last Monday Could be from worsening melanoma in the brain Brain MRI did show some scattered supratentorial metastatic melanoma, no infarction, vasogenic edema from left parietal lobe MRI of the spine pending (2) Melanoma of shoulder: Qualifiers: Laterality: right Qualified Code(s): C43.61 - Malignant melanoma of right upper limb, including shoulder Code(s): C43.60 - Malignant melanoma of unspecified upper limb, including shoulder Status: Acute Assessment and Plan: Metastasized to the brain and in the lymph oncology consulted thank you (3) 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7 - Diarrhea, unspecified Status: Acute Assessment and Plan: Problem for this patient Stool cultures ordered and pending (6) Hypokalemia: Code(s): E87.6 - Hypokalemia Status: Acute Assessment and Plan: Potassium 2.6 Replace with 40IV and 40PO Probably from the diarrhea Trend labs replace as needed Recheck K at 1600 Time Spent With Patient Time with patient: Greater than 35 minutes Subjective Date/time seen: 04/08/21 09:25 Interval history: Date/Time: 04/07/21 08:00 Narrative: Patient is 65-year-old male with a past medical history of basal cell carcinoma, 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 Patient stated that it all started yesterday afternoon when he stood up and fell. He stated that his legs feel very heavy and jerky and his nerves or jumping. He is also been very nauseous lately and his appetite is been severely decreased. Patient also states when he stands that he gets very dizzy lightheaded. Patient has also been having lots of diarrhea which he is not sure if some medications or if he could possibly getting an infection. He is very anxious and really gets worked up with certain questions. He did state that he just has some lymph nodes removed from his arm/shoulder area last Monday. He was also concerned about getting all of his medications. He denies getting sleep in the last couple of days. Appetite has been very minimal which he is afraid to eat or drink since it causes him to have diarrhea. He did state that his appetite was better when he was taking steroids. He denies having chest pain, shortness of breath, sweats, fevers, chills, or urinary dysfunction. He can only move his legs about 1-2 inches off the bed. He denies palpitations, or recent antibiotic use over the last few months. He is really getting discouraged and worried about the next steps. He is also worried about his and her trying to take care of him in this condition. Date/Time 04/08/21 09:25 Patient was sleeping when I went into see him. He stated that he was able to get some really good sleep through out the night. He also stated that he did not have any episodes of di
--- NOTE | 2021-04-08 09:25 | P.PNIM_ITS ---
Progress Note: A&P Assessment and Plan (1) Weakness: Code(s): R53.1 - Weakness Status: Acute Assessment and Plan: * Melanoma noted in the brain and in multiple areas of the body * PT/OT * Could be from deconditioning * Almost wonder if this is from an infection since the patient just had a lymph node taken out last Monday * Could be from worsening melanoma in the brain * Brain MRI did show some scattered supratentorial metastatic melanoma, no infarction, vasogenic edema from left parietal lobe * MRI of the spine pending (2) Melanoma of shoulder: Qualifiers: Laterality: right Qualified Code(s): C43.61 - Malignant melanoma of right upper limb, including shoulder Code(s): C43.60 - Malignant melanoma of unspecified upper limb, including shoulder Status: Acute Assessment and Plan: * Metastasized to the brain and in the lymph * oncology consulted thank you (3) 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: Onset Date: Unknown Code(s): C79.31 - Secondary malignant neoplasm of brain Status: Acute Assessment and Plan: * Neurology and oncology consulted thank you * MRI brain: scattered supratentorial metastatic melanoma, no infarction, vasogenic edema from left parietal lobe * Last radiation was 3 wks ago * Last chemo was about 2 weeks ago (4) Diabetes: Code(s): E11.9 - Type 2 diabetes mellitus without complications Status: Acute Assessment and Plan: * Current glucose 117 * Hold off on restarting home insulin since appetite has been decreased * Trend labs * Adjust medications as needed (5) Diarrhea: Code(s): R19.7 - Diarrhea, unspecified Status: Acute Assessment and Plan: * Problem for this patient * Stool cultures ordered and pending (6) Hypokalemia: Code(s): E87.6 - Hypokalemia Status: Acute Assessment and Plan: * Potassium 2.6 * Replace with 40IV and 40PO * Probably from the diarrhea * Trend labs * replace as needed * Recheck K at 1600 Time Spent With Patient Time with patient: Greater than 35 minutes Subjective Date/time seen: 04/08/21 09:25 Interval history: Date/Time: 04/07/21 08:00 Narrative: Patient is 65-year-old male with a past medical history of basal cell carcinoma, 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 Patient stated that it all started yesterday afternoon when he stood up and fell. He stated that his legs feel very heavy and jerky and his nerves or jumping. He is also been very nauseous lately and his appetite is been severely decreased. Patient also states when he stands that he gets very dizzy lightheaded. Patient has also been having lots of diarrhea which he is not sure if some medications or if he could possibly getting an infection. He is very anxious and really gets worked up with certain questions. He did state that he just has some lymph nodes removed from his arm/shoulder area last Monday. He was also concerned about getting all of his medications. He denies getting sleep in the last couple of days. Appetite has been very minimal which he is afraid to eat or drink since it causes him to have diarrhea. He did state that his appetite was better when he was taking steroids. He denies having chest pain, shortness of breath, sweats, fevers, chills, or urinary dysfunction. He can only move hi
--- NOTE | 2021-04-08 11:04 | PCPTNOTE ---
Patient refused treatment this session due to being up all morning and feeling a little anxious. He asked if we could do it later. Will check back with patient after lunch.
[2021-04-08] MEDS: LORazepam (*CRX) 0.5 MG TABLET PO ×2 (11:06→21:35)
[2021-04-08 11:46] LABS: Glucose Point of Care 210 mg/dl (65-105)
[2021-04-08] MEDS: INSULIN ASPART (*BKC) 100 UNITS/ML SUB-Q (13:39)
[2021-04-08 14:00] VITALS: BP 105/68; PULSE 74; RESP 18; TEMP 36.4; O2SAT 99
[2021-04-08 16:05] LABS: Glucose Point of Care 118 mg/dl (65-105)
[2021-04-08 16:13] LABS: Potassium 3.6 mmol/L (3.4-5.0)
[2021-04-08 21:56] LABS: Glucose Point of Care 141 mg/dl (65-105)
[2021-04-08 22:00] VITALS: BP 103/63; PULSE 60; RESP 18; TEMP 37.1; O2SAT 97
[2021-04-09 06:00] VITALS: BP 117/63; PULSE 59; RESP 18; TEMP 36.2; O2SAT 97
[2021-04-09 06:13] LABS: Basophils Absolute Auto 0.1 K/mm3 (0.0-0.1); Basophils Percent Auto 1.2 % (0.2-1.2); Eosinophils Absolute Auto 0.1 K/mm3 (0-0.3); Eosinophils Percent Auto 2.4 % (0-4.4); Hematocrit 35.5 % (42.0-52.0); Hemoglobin 12.1 g/dL (14.0-18.0); Lymphocytes Absolute Auto 1.49 K/mm3 (0.9-3.2); Lymphocytes Percent Auto 29.2 % (18.3-44.2); Mean Corpuscular HGB Conc 34.1 g/dl (32-36); Mean Corpuscular Hemoglobin 31.9 pg (26-34); Mean Corpuscular Volume 93.7 fl (80-100); Mean Platelet Volume 9.2 fl (7.4-10.4); Monocytes Absolute Auto 0.7 K/mm3 (0.1-0.6); Monocytes Percent Auto 13.3 % (2.6-8.5); Neutrophils Absolute Auto 2.7 K/mm3 (1.3-6.7); Neutrophils Percent Auto 51.9 % (45.5-73.1); Platelet Count Result 173 k/mm3 (150-375); Red Blood Count 3.79 M/mm3 (4.6-6.20); Red Cell Distribution Width 14.1 % (11.5-14.5); White Blood Count 5.1 K/mm3 (4.5-10.0)
[2021-04-09 06:24] LABS: Alanine Aminotransferase 30 U/L (4-50); Albumin Level 2.3 g/dL (3.5-5.1); Alkaline Phosphatase 60 U/L (38-126); Anion Gap 2 mmol/L (8-16); Aspartate Amino Transferase 24 U/L (17-59); Bilirubin,Total 0.5 mg/dL (0.2-1.3); Blood Urea Nitrogen 8 mg/dL (9-20); Calcium 8.2 mg/dL (8.4-10.2); Carbon Dioxide 27 mmol/L (22-30); Chloride 111 mmol/L (98-107); Estimated CRCL calculation 127 ml/min; Estimated Glomerular Filt Rate > 60; Glucose 121 mg/dL (65-110); Magnesium 1.9 mg/dL (1.6-2.3); Potassium 3.2 mmol/L (3.4-5.0); Sodium 140 mmol/L (137-145)
[2021-04-09] MEDS: levETIRAcetam ORAL SOL 500 MG/5 ML UDC 250 MG PO ×2 (08:30→18:01)
[2021-04-09] MEDS: POTASSIUM CHLORIDE 20 MEQ TABLET 60 MEQ PO (08:30)
[2021-04-09] MEDS: ENOXAPARIN 40 MG/0.4 ML SYRINGE SUB-Q (08:30)
[2021-04-09 08:32] LABS: Glucose Point of Care 113 mg/dl (65-105)
--- NOTE | 2021-04-09 08:33 | WPDCDIQUERY2 ---
CDI Query Clarification Request -Head CT findings: Increased size of a high left parietal mass currently measuring 17 mm compared to 13 mm previously, with surrounding vasogenic edema. -Brain MRI findings: There is associated vasogenic edema, mostly from the left parietal lobe lesion which is measuring about 2.1 cm. -Brain MRI findings documented in progress notes. Brain MRI did show some scattered supratentorial metastatic melanoma, no infarction, vasogenic edema from left parietal lobe -Coders cannot capture diagnoses from radiology findings To fully capture severity of illness, if you agree with MRI and CT findings of vasogenic edema, please document as a diagnosis. <Savannah Warner RN - Last Filed: 04/09/21 08:39> Added as a problem <KARO Stuart - Last Filed: 04/09/21 13:56>
[2021-04-09] MEDS: PHENYLEPH/SHARK OIL/MO/PETROL CREAM 26 GM 1 APPLIC RECTAL (11:50)
--- NOTE | 2021-04-09 11:55 | WPDNEUROPN ---
Progress Note: A&P Additional Plan considering the metastatic disease to the brain and with complaints of generalized decrease in the strength particularly the lower extremities along with the atrophy of the left quadriceps muscle he will benefit from the physical therapy at this stage Subjective Date/time seen: 04/09/21 11:55 65 years old admitted for the complaints of generalized weakness but more so both lower extremities in addition to the ongoing history of metastatic melanoma for which patient had received chemotherapy evaluation up until now documented him to be with1. mild lumbar spondylosis on MRI of the lumbar spine 2. Mild thoracic spondylosis with no evidence of metastatic disease 3. moderate to severe cervical foraminal stenosis but again no metastatic disease 4. Head CT scan with increased size of a high left parietal mass measuring 17mm compared to 13mm previously along with vasogenic edema and brain MRI with left parietal lobe lesion with the geniculate edema measuring about 2.1cm along with scattered supratentorial metastatic melanoma without any infarction Review of Systems Review of Systems: All systems reviewed & are unremarkable except as noted in HPI and below Exam Narrative: patient remains easily arousable awake alert head normocephalic with no cranial bruit ear nose throat examination normal neck is supple with no meningeal signs no cervical bruits no thyromegaly no lymphadenopathy heart regular lungs clear abdomen is soft neurologically he is awake alert follows instructions fairly well pupil round regular feels the vision full extraocular moves are full face symmetric tongue midline motor examination revealed him to have decreased strength bilaterally more so in the lower extremities with obvious atrophy with left quadriceps muscle as well Objective Data Vital Signs Vital Signs: Vital Signs - 24 hr 04/08/21 14:00 04/08/21 22:00 04/09/21 06:00 Temperature 36.4 C L 37.1 C 36.2 C L Pulse Rate 74 60 59 L Respiratory Rate 18 18 18 Blood Pressure 105/68 103/63 117/63 Pulse Oximetry 99 97 97 Intake/Output Intake/Output: Intake & Output 04/06/21 04/07/21 04/08/21 04/09/21 23:59 23:59 23:59 23:59 Intake Total 640 1770 250 Output Total 301 300 300 Balance 339 1470 -50 Meds/Results Medications: Active Medications Generic Name Dose Route Start Last Admin Trade Name Freq PRN Reason Stop Dose Admin Dextrose 12.5 gm 04/07/21 08:32 Dextrose 50% 25 Gm/50 Ml Syringe IV PUSH PRN PRN Hypoglycemia Protocol Enoxaparin Sodium 40 mg 04/08/21 09:00 04/09/21 08:30 Enoxaparin 40 Mg/0.4 Ml Syringe SUB-Q 40 mg DAILY ESTELITA Administration Glucagon 1 mg 04/07/21 08:32 Glucagon For Inj 1 Mg Vial IM PRN PRN Hypoglycemia Protocol Glucose 15 gm 04/07/21 08:32 Glucose Oral Gel 15 Gm Of Glucse In 37.5 Gm Tube PO PRN PRN Hypoglycemia Protocol Dextrose 1,000 mls @ 100 mls/hr 04/07/21 08:32 Dextrose 5% 1,000 Ml IVPB PRN PRN Hypoglycemia Protocol Insulin Aspart 4 - 8 units 04/07/21 12:00 04/09/21 08:21 Insulin Aspart (*Bkc) 100 Units/Ml SUB-Q Not Given TIDWM ESTELITA Protocol Levetiracetam 250 mg 04/07/21 09:00 04/09/21 08:30 Levetiracetam Oral Domi 500 Mg/5 Ml Udc PO 250 mg BID ESTELITA Administration Loperamide HCl 2 mg 04/07/21 12:43 Loperamide Hcl 2 Mg Capsule PO PRN PRN Diarrhea Lorazepam 0.5 mg 04/07/21 08:28 04/08/21 21:35 Lorazepam (*Crx) 0.5 Mg Tablet PO 0.5 mg Q6H PRN Administration Anxiety Phenyleph/Shark Oil/Min Oil/Petrol 1 applic 04/09/21 09:00 04/09/21 11:50 Phenyleph/Shark Oil/Mo/Petrol Cream 26 Gm RECTAL 1 applic DAILY ESTELITA Administration Radiology Results: ITS Impressions Head CT 04/06/21 23:30 IMPRESSION: Multiple intracranial metastases with some areas of improvement and some areas of new metastases and increased size of metastasis si
[2021-04-09] MEDS: LORazepam (*CRX) 0.5 MG TABLET PO (11:57)
[2021-04-09 12:30] LABS: Glucose Point of Care 126 mg/dl (65-105)
--- NOTE | 2021-04-09 13:38 | P.PNIM_ITS ---
Progress Note: A&P Assessment and Plan (1) Vasogenic brain edema: Code(s): G93.6 - Cerebral edema Status: Acute Assessment and Plan: * MRI brain: scattered supratentorial metastatic melanoma, no infarction, vaso genic edema from left parietal lobe * Decadron 4mg PO BID * Continue to monitor (2) Weakness: Code(s): R53.1 - Weakness Status: Acute Assessment and Plan: * Melanoma noted in the brain and in multiple areas of the body * PT/OT * Could be from deconditioning * Almost wonder if this is from an infection since the patient just had a lymph node taken out last Monday * Could be from worsening melanoma in the brain * Brain MRI did show some scattered supratentorial metastatic melanoma, no infarction, vasogenic edema from left parietal lobe * MRI of the spine does not show any metastatic disease at this time. 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: Onset Date: Unknown Code(s): C79.31 - Secondary malignant neoplasm of brain Status: Acute Assessment and Plan: * Neurology and oncology consulted thank you * MRI brain: scattered supratentorial metastatic melanoma, no infarction, vasogenic edema from left parietal lobe * Last radiation was 3 wks ago * Last chemo was about 2 weeks ago (5) Diabetes: Code(s): E11.9 - Type 2 diabetes mellitus without complications Status: Acute Assessment and Plan: * Current glucose 117 * Hold off on restarting home insulin since appetite has been decreased * Trend labs * Adjust medications as needed (6) Diarrhea: Code(s): R19.7 - Diarrhea, unspecified Status: Acute Assessment and Plan: * Problem for this patient * Stool cultures ordered and pending (7) Hypokalemia: Code(s): E87.6 - Hypokalemia Status: Acute Assessment and Plan: * Potassium 3.2 * Replace with 40mg PO * Probably from the diarrhea * Trend labs * replace as needed Time Spent With Patient Time with patient: Greater than 35 minutes Subjective Date/time seen: 04/09/21 1338 Interval history: Date/Time: 04/07/21 08:00 Narrative: Patient is 65-year-old male with a past medical history of basal cell carcinoma, 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 Patient stated that it all started yesterday afternoon when he stood up and fell. He stated that his legs feel very heavy and jerky and his nerves or jumping. He is also been very nauseous lately and his appetite is been severely decreased. Patient also states when he stands that he gets very dizzy lightheaded. Patient has also been having lots of diarrhea which he is not sure if some medications or if he could possibly getting an infection. He is very anxious and really gets worked up with certain questions. He did state that he just has some lymph nodes removed from his arm/shoulder area last Monday. He was also concerned about getting all of his medications. He
--- NOTE | 2021-04-09 13:38 | PM.IMPN ---
Progress Note: A&P Assessment and Plan (1) Vasogenic brain edema: Code(s): G93.6 - Cerebral edema Status: Acute Assessment and Plan: MRI brain: scattered supratentorial metastatic melanoma, no infarction, vasogenic edema from left parietal lobe Decadron 4mg PO BID Continue to monitor (2) Weakness: Code(s): R53.1 - Weakness Status: Acute Assessment and Plan: Melanoma noted in the brain and in multiple areas of the body PT/OT Could be from deconditioning Almost wonder if this is from an infection since the patient just had a lymph node taken out last Monday Could be from worsening melanoma in the brain Brain MRI did show some scattered supratentorial metastatic melanoma, no infarction, vasogenic edema from left parietal lobe MRI of the spine does not show any metastatic disease at this time. 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7 - Diarrhea, unspecified Status: Acute Assessment and Plan: Problem for this patient Stool cultures ordered and pending (7) Hypokalemia: Code(s): E87.6 - Hypokalemia Status: Acute Assessment and Plan: Potassium 3.2 Replace with 40mg PO Probably from the diarrhea Trend labs replace as needed Time Spent With Patient Time with patient: Greater than 35 minutes Subjective Date/time seen: 04/09/21 1338 Interval history: Date/Time: 04/07/21 08:00 Narrative: Patient is 65-year-old male with a past medical history of basal cell carcinoma, 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 Patient stated that it all started yesterday afternoon when he stood up and fell. He stated that his legs feel very heavy and jerky and his nerves or jumping. He is also been very nauseous lately and his appetite is been severely decreased. Patient also states when he stands that he gets very dizzy lightheaded. Patient has also been having lots of diarrhea which he is not sure if some medications or if he could possibly getting an infection. He is very anxious and really gets worked up with certain questions. He did state that he just has some lymph nodes removed from his arm/shoulder area last Monday. He was also concerned about getting all of his medications. He denies getting sleep in the last couple of days. Appetite has been very minimal which he is afraid to eat or drink since it causes him to have diarrhea. He did state that his appetite was better when he was taking steroids. He denies having chest pain, shortness of breath, sweats, fevers, chills, or urinary dysfunction. He can only move his legs about 1-2 inches off the bed. He denies palpitations, or recent antibiotic use over the last few months. He is really getting discouraged and worried about the next steps
[2021-04-09 14:00] VITALS: BP 111/64; PULSE 70; RESP 15; TEMP 36.4; O2SAT 96
[2021-04-09] MEDS: LOPERAMIDE HCL 2 MG CAPSULE PO (15:18)
[2021-04-09 17:15] LABS: Glucose Point of Care 128 mg/dl (65-105)
[2021-04-09] MEDS: DEXAMETHASONE 4 MG TABLET PO (18:02)
[2021-04-09 21:25] LABS: Glucose Point of Care 234 mg/dl (65-105)
[2021-04-09 22:00] VITALS: BP 118/64; PULSE 61; RESP 18; TEMP 36.5; O2SAT 97
[2021-04-10 06:00] VITALS: BP 126/77; PULSE 62; RESP 16; TEMP 36.6; O2SAT 96
[2021-04-10 07:02] LABS: Basophils Percent Auto 0.7 % (0.2-1.2); Hematocrit 40.8 % (42.0-52.0); Hemoglobin 13.6 g/dL (14.0-18.0); Immature Granulocyte Absolute 0.23 K/mm3 (0.00-0.031); Lymphocytes Absolute Auto 0.81 K/mm3 (0.9-3.2); Lymphocytes Percent Auto 14.2 % (18.3-44.2); Mean Corpuscular HGB Conc 33.3 g/dl (32-36); Mean Corpuscular Hemoglobin 32.6 pg (26-34); Mean Corpuscular Volume 97.8 fl (80-100); Mean Platelet Volume 9.1 fl (7.4-10.4); Monocytes Absolute Auto 0.4 K/mm3 (0.1-0.6); Monocytes Percent Auto 6.9 % (2.6-8.5); Neutrophils Absolute Auto 4.2 K/mm3 (1.3-6.7); Neutrophils Percent Auto 74.2 % (45.5-73.1); Platelet Count Result 205 k/mm3 (150-375); Red Blood Count 4.17 M/mm3 (4.6-6.20); Red Cell Distribution Width 14.2 % (11.5-14.5); White Blood Count 5.7 K/mm3 (4.5-10.0)
[2021-04-10 07:14] LABS: Alanine Aminotransferase 32 U/L (4-50); Albumin Level 2.6 g/dL (3.5-5.1); Alkaline Phosphatase 72 U/L (38-126); Anion Gap -1 mmol/L (8-16); Aspartate Amino Transferase 26 U/L (17-59); Bilirubin,Total 0.3 mg/dL (0.2-1.3); Blood Urea Nitrogen 6 mg/dL (9-20); Calcium 8.8 mg/dL (8.4-10.2); Carbon Dioxide 29 mmol/L (22-30); Chloride 112 mmol/L (98-107); Estimated CRCL calculation 127 ml/min; Estimated Glomerular Filt Rate > 60; Glucose 183 mg/dL (65-110); Sodium 140 mmol/L (137-145)
[2021-04-10 08:00] VITALS: PULSE 62; RESP 16; O2SAT 96
[2021-04-10 08:20] LABS: Glucose Point of Care 164 mg/dl (65-105)
[2021-04-10] MEDS: ENOXAPARIN 40 MG/0.4 ML SYRINGE SUB-Q (10:20)
[2021-04-10] MEDS: levETIRAcetam ORAL SOL 500 MG/5 ML UDC 250 MG PO ×2 (10:22→16:38)
[2021-04-10] MEDS: DEXAMETHASONE 4 MG TABLET PO ×2 (10:22→16:39)
[2021-04-10] MEDS: PHENYLEPH/SHARK OIL/MO/PETROL CREAM 26 GM 1 APPLIC RECTAL (10:23)
[2021-04-10 12:22] LABS: Glucose Point of Care 159 mg/dl (65-105)
--- NOTE | 2021-04-10 15:00 | PM.IMPN ---
Progress Note: A&P Assessment and Plan (1) Vasogenic brain edema: Code(s): G93.6 - Cerebral edema Status: Acute Assessment and Plan: MRI brain: scattered supratentorial metastatic melanoma, no infarction, vasogenic edema from left parietal lobe Decadron 4mg PO BID Continue to monitor (2) Weakness: Code(s): R53.1 - Weakness Status: Acute Assessment and Plan: Melanoma noted in the brain and in multiple areas of the body PT/OT Could be from deconditioning Almost wonder if this is from an infection since the patient just had a lymph node taken out last Monday Could be from worsening melanoma in the brain Brain MRI did show some scattered supratentorial metastatic melanoma, no infarction, vasogenic edema from left parietal lobe MRI of the spine does not show any metastatic disease at this time. 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 Patient stated that it all started yesterday afternoon when he stood up and fell. He stated that his legs feel very heavy and jerky and his nerves or jumping. He is also been very nauseous lately and his appetite is been severely decreased. Patient also states when he stands that he gets very dizzy lightheaded. Patient has also been having lots of diarrhea which he is not sure if some medications or if he could possibly getting an infection. He is very anxious and really gets worked up with certain questions. He did state that he just has some lymph nodes removed from his arm/shoulder area last Monday. He was also concerned about getting all of his medications. He denies getting sleep in the last couple of days. Appetite has been very minimal which he is afraid to eat or drink since it causes him to have diarrhea. He did state that his appetite was better when he was taking steroids. He denies having chest pain, shortness of breath, sweats, fevers, chills, or urinary dysfunction. He can only move his legs about 1-2 inches off the bed. He denies palpitations, or recent antibiotic use over the last few months. He is really getting
--- NOTE | 2021-04-10 15:00 | P.PNIM_ITS ---
Progress Note: A&P Assessment and Plan (1) Vasogenic brain edema: Code(s): G93.6 - Cerebral edema Status: Acute Assessment and Plan: * MRI brain: scattered supratentorial metastatic melanoma, no infarction, vaso genic edema from left parietal lobe * Decadron 4mg PO BID * Continue to monitor (2) Weakness: Code(s): R53.1 - Weakness Status: Acute Assessment and Plan: * Melanoma noted in the brain and in multiple areas of the body * PT/OT * Could be from deconditioning * Almost wonder if this is from an infection since the patient just had a lymph node taken out last Monday * Could be from worsening melanoma in the brain * Brain MRI did show some scattered supratentorial metastatic melanoma, no infarction, vasogenic edema from left parietal lobe * MRI of the spine does not show any metastatic disease at this time. 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: Onset Date: Unknown Code(s): C79.31 - Secondary malignant neoplasm of brain Status: Acute Assessment and Plan: * Neurology and oncology consulted thank you * MRI brain: scattered supratentorial metastatic melanoma, no infarction, vasogenic edema from left parietal lobe * Last radiation was 3 wks ago * Last chemo was about 2 weeks ago (5) Diabetes: Code(s): E11.9 - Type 2 diabetes mellitus without complications Status: Acute Assessment and Plan: * Current glucose 183 * Hold off on restarting home insulin since appetite has been decreased * Will need to pay attention because he is back on steroids. * Trend labs * Adjust medications as needed (6) Diarrhea: Code(s): R19.7 - Diarrhea, unspecified Status: Acute Assessment and Plan: * Problem for this patient * Stool cultures negative up to this point (7) Hypokalemia: Code(s): E87.6 - Hypokalemia Status: Acute Assessment and Plan: * Potassium 4.0 * Probably from the diarrhea * Trend labs * replace as needed Time Spent With Patient Time with patient: Greater than 35 minutes Subjective Date/time seen: 04/10/21 15:00 Interval history: Date/Time: 04/07/21 08:00 Narrative: Patient is 65-year-old male with a past medical history of basal cell carcinoma, 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 P atient stated that it all started yesterday afternoon when he stood up and fell. He stated that his legs feel very heavy and jerky and his nerves or jumping. He is also been very nauseous lately and his appetite is been severely decreased. Patient also states when he stands that he gets very dizzy lightheaded. Patient has also been having lots of diarrhea which he is not sure if some medications or if he could possibly getting an infection. He is very anxious and really gets worked up with certain questions. He did state that he just has some lymph nodes removed from his arm/shoulder area last Monday. He was also concerned a
[2021-04-10 15:26] VITALS: BP 116/68; PULSE 97; RESP 18; TEMP 36.6; O2SAT 98
[2021-04-10 16:17] LABS: Glucose Point of Care 207 mg/dl (65-105)
[2021-04-10] MEDS: INSULIN ASPART (*BKC) 100 UNITS/ML SUB-Q (16:38)
[2021-04-10] MEDS: LORazepam (*CRX) 0.5 MG TABLET PO (21:11)
[2021-04-10 21:43] VITALS: BP 136/74; PULSE 54; RESP 16; TEMP 36.3; O2SAT 97
--- NOTE | 2021-04-11 01:00 | PC.NURSE ---
Daylight Savings Time For Daylight Savings Time Ending in the Fall - Clocks are moved back. For Daylight Savings Time Beginning in the Spring - Clocks are moved ahead. For [facility], the time of change occurs at 0200 hrs. Time is taken from the linux server administrator. This entry on the patient's chart recognizes the change in time reflected during documentation. Example: 2 entries for vital signs may be charted for 0200 hrs.
[2021-04-11 06:00] VITALS: BP 110/65; PULSE 51; RESP 16; TEMP 36.4; O2SAT 97
[2021-04-11 07:58] LABS: Glucose Point of Care 166 mg/dl (65-105)
[2021-04-11 08:00] VITALS: PULSE 51; RESP 16; O2SAT 97
[2021-04-11] MEDS: levETIRAcetam ORAL SOL 500 MG/5 ML UDC 250 MG PO ×2 (10:18→17:19)
[2021-04-11] MEDS: DEXAMETHASONE 4 MG TABLET PO ×2 (10:18→17:19)
[2021-04-11] MEDS: ENOXAPARIN 40 MG/0.4 ML SYRINGE SUB-Q (10:18)
[2021-04-11] MEDS: LORazepam (*CRX) 0.5 MG TABLET PO ×2 (10:20→20:20)
[2021-04-11] MEDS: PHENYLEPH/SHARK OIL/MO/PETROL CREAM 26 GM 1 APPLIC RECTAL (10:20)
--- NOTE | 2021-04-11 11:20 | PM.IMPN ---
Progress Note: A&P Assessment and Plan (1) Discharge planning issues: Code(s): Z02.9 - Encounter for administrative examinations, unspecified Status: Acute Assessment and Plan: Rehab Vs Home with [facility] accepted [place] swing bed pending (2) Vasogenic brain edema: Code(s): G93.6 - Cerebral edema Status: Acute Assessment and Plan: MRI brain: scattered supratentorial metastatic melanoma, no infarction, vasogenic edema from left parietal lobe Decadron 4mg PO BID Continue to monitor (3) Weakness: Code(s): R53.1 - Weakness Status: Acute Assessment and Plan: Melanoma noted in the brain and in multiple areas of the body PT/OT Could be from deconditioning Could be from worsening melanoma in the brain Brain MRI did show some scattered supratentorial metastatic melanoma, no infarction, vasogenic edema from left parietal lobe MRI of the spine does not show any metastatic disease at this time. 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 Trend labs Adjust medications as needed (7) Diarrhea: Code(s): R19.7 - Diarrhea, unspecified Status: Acute Assessment and Plan: Seems to be resolved Problem for this patient Stool cultures negative up to this point (8) Hypokalemia: Code(s): E87.6 - Hypokalemia Status: Acute Assessment and Plan: Potassium 4.0 Probably from the diarrhea Trend labs replace as needed Time Spent With Patient Time with patient: Greater than 35 minutes Subjective Date/time seen: 04/11/21 11:20 Interval history: Date/Time: 04/07/21 08:00 Narrative: Patient is 65-year-old male with a past medical history of basal cell carcinoma, 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 Patient stated that it all started yesterday afternoon when he stood up and fell. He stated that his legs feel very heavy and jerky and his nerves or jumping. He is also been very nauseous lately and his appetite is been severely decreased. Patient also states when he stands that he gets very dizzy lightheaded. Patient has also been having lots of diarrhea which he is not sure if some medications or if he could possibly getting an infection. He is very anxious and really gets worked up with certain questions. He did state that he just has some lymph nodes removed from his arm/shoulder area last Monday. He was also concerned about getting all of his medications. He denies getting sleep in the last couple of days. Appetite has been very minimal which he is afraid to eat or drink since it causes him to have diarrhea. He did state that his appetite was better when he was taking steroids. He denies having chest pain, shortness of breath, sweats, fevers, chills, or urinary dysfun
--- NOTE | 2021-04-11 11:20 | P.PNIM_ITS ---
Progress Note: A&P Assessment and Plan (1) Discharge planning issues: Code(s): Z02.9 - Encounter for administrative examinations, unspecified Status: Acute Assessment and Plan: * Rehab Vs Home with * [facility] accepted * [place] swing bed pending (2) Vasogenic brain edema: Code(s): G93.6 - Cerebral edema Status: Acute Assessment and Plan: * MRI brain: scattered supratentorial metastatic melanoma, no infarction, vasogenic edema from left parietal lobe * Decadron 4mg PO BID * Continue to monitor (3) Weakness: Code(s): R53.1 - Weakness Status: Acute Assessment and Plan: * Melanoma noted in the brain and in multiple areas of the body * PT/OT * Could be from deconditioning * Could be from worsening melanoma in the brain * Brain MRI did show some scattered supratentorial metastatic melanoma, no infarction, vasogenic edema from left parietal lobe * MRI of the spine does not show any metastatic disease at this time. 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: Onset Date: Unknown Code(s): C79.31 - Secondary malignant neoplasm of brain Status: Acute Assessment and Plan: * Neurology and oncology consulted thank you * MRI brain: scattered supratentorial metastatic melanoma, no infarction, vasogenic edema from left parietal lobe * Last radiation was 3 wks ago * Last chemo was about 2 weeks ago (6) Diabetes: Code(s): E11.9 - Type 2 diabetes mellitus without complications Status: Acute Assessment and Plan: * Current glucose 153 * Hold off on restarting home insulin since appetite has been decreased * Will need to pay attention because he is back on steroids. * Trend labs * Adjust medications as needed (7) Diarrhea: Code(s): R19.7 - Diarrhea, unspecified Status: Acute Assessment and Plan: * Seems to be resolved * Problem for this patient * Stool cultures negative up to this point (8) Hypokalemia: Code(s): E87.6 - Hypokalemia Status: Acute Assessment and Plan: * Potassium 4.0 * Probably from the diarrhea * Trend labs * replace as needed Time Spent With Patient Time with patient: Greater than 35 minutes Subjective Date/time seen: 04/11/21 11:20 Interval history: Date/Time: 04/07/21 08:00 Narrative: Patient is 65-year-old male with a past medical history of basal cell carcinoma, 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 Patient stated that it all started yesterday afternoon when he stood up and fell. He stated that his legs feel very heavy and jerky and his nerves or jumping. He is also been very nauseous lately and his appetite is been severely decreased. Patient also states when he stands that he gets very dizzy lightheaded. Patient has also been having lots of diarrhea which he is not sure if some medications or if he could possibly getting an infection
[2021-04-11 12:02] LABS: Glucose Point of Care 153 mg/dl (65-105)
[2021-04-11 15:19] VITALS: BP 111/63; PULSE 58; RESP 18; TEMP 36.6; O2SAT 92
[2021-04-11 17:08] LABS: Glucose Point of Care 283 mg/dl (65-105)
[2021-04-11] MEDS: INSULIN ASPART (*BKC) 100 UNITS/ML SUB-Q (17:20)
[2021-04-11 18:55] VITALS: BP 151/73; PULSE 53; RESP 18; TEMP 36.6; O2SAT 95
[2021-04-11 21:02] LABS: Glucose Point of Care 225 mg/dl (65-105)
[2021-04-12 05:44] VITALS: BP 130/76; PULSE 45; RESP 14; TEMP 36.4; O2SAT 99
[2021-04-12 06:50] LABS: Basophils Absolute Auto 0.1 K/mm3 (0.0-0.1); Basophils Percent Auto 0.6 % (0.2-1.2); Hematocrit 37.9 % (42.0-52.0); Hemoglobin 12.7 g/dL (14.0-18.0); Immature Granulocyte Absolute 0.82 K/mm3 (0.00-0.031); Immature Granulocyte Percent A 6.6 % (0-0.5); Lymphocytes Absolute Auto 1.32 K/mm3 (0.9-3.2); Lymphocytes Percent Auto 10.6 % (18.3-44.2); Mean Corpuscular HGB Conc 33.5 g/dl (32-36); Mean Corpuscular Hemoglobin 32.2 pg (26-34); Mean Corpuscular Volume 95.9 fl (80-100); Mean Platelet Volume 9.5 fl (7.4-10.4); Monocytes Absolute Auto 0.7 K/mm3 (0.1-0.6); Monocytes Percent Auto 5.4 % (2.6-8.5); Neutrophils Absolute Auto 9.6 K/mm3 (1.3-6.7); Neutrophils Percent Auto 76.8 % (45.5-73.1); Nucleated Red Blood Cells Perc 0.2 % (0.0-0.2); Platelet Count Result 235 k/mm3 (150-375); Red Blood Count 3.95 M/mm3 (4.6-6.20); Red Cell Distribution Width 13.8 % (11.5-14.5); White Blood Count 12.5 K/mm3 (4.5-10.0)
[2021-04-12 07:19] LABS: Alanine Aminotransferase 40 U/L (4-50); Albumin Level 2.5 g/dL (3.5-5.1); Alkaline Phosphatase 69 U/L (38-126); Anion Gap 4 mmol/L (8-16); Aspartate Amino Transferase 42 U/L (17-59); Bilirubin,Total 0.3 mg/dL (0.2-1.3); Blood Urea Nitrogen 14 mg/dL (9-20); Calcium 8.9 mg/dL (8.4-10.2); Carbon Dioxide 27 mmol/L (22-30); Chloride 106 mmol/L (98-107); Estimated CRCL calculation 127 ml/min; Estimated Glomerular Filt Rate > 60; Glucose 208 mg/dL (65-110); Potassium 3.9 mmol/L (3.4-5.0); Sodium 137 mmol/L (137-145)
[2021-04-12 08:43] LABS: Glucose Point of Care 178 mg/dl (65-105)
--- NOTE | 2021-04-12 09:20 | PM.DS ---
DS: Admitting Diagnosis Discharge Date Date of service 04/12/2021 at 9:20 a.m. 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 DS: Discharge Diagnosis Discharge Diagnosis (1) Discharge planning issues: Code(s): Z02.9 - Encounter for administrative examinations, unspecified Status: Acute Assessment and Plan: Rehab Vs Home with Cecilia Hilario accepted [place] swing bed pending (2) Vasogenic brain edema: Code(s): G93.6 - Cerebral edema Status: Acute Assessment and Plan: MRI brain: scattered supratentorial metastatic melanoma, no infarction, vasogenic edema from left parietal lobe Decadron 4mg PO BID Continue to monitor (3) Weakness: Code(s): R53.1 - Weakness Status: Acute Assessment and Plan: Melanoma noted in the brain and in multiple areas of the body PT/OT Could be from deconditioning Could be from worsening melanoma in the brain Brain MRI did show some scattered supratentorial metastatic melanoma, no infarction, vasogenic edema from left parietal lobe MRI of the spine does not show any metastatic disease at this time. 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 Trend labs Adjust medications as needed (7) Diarrhea: Code(s): R19.7 - Diarrhea, unspecified Status: Acute Assessment and Plan: Seems to be resolved Problem for this patient Stool cultures negative up to this point (8) Hypokalemia: Code(s): E87.6 - Hypokalemia Status: Acute Assessment and Plan: Potassium 4.0 Probably from the diarrhea Trend labs replace as needed DS: Summary Hospital Course Hospital Course: Patient is a 65-year-old male with a past medical history metastatic melanoma, basal cell carcinoma, hyperlipidemia presented the ED for lower extremity weakness. Patient stated that when he stood up to get out of bed he felt very lightheaded and dizzy and fell. Patient was also complaining of diarrhea and lack of appetite. Patient had just undergone immunotherapy and radiation 2-3 weeks ago. MRI of the brain did was performed and showed metastatic melanoma with vasogenic edema to the left parietal lobe. MRI of the cervical thoracic and lumbar was also performed which showed no metastasis to the spinal cord. Patient was also found to be hypokalemic upon admission which was treated with replacement. Currently potassium is 3.9. All lab values are within normal limits. Patient also had diarrhea which has subsided and patient is also eating better has better appetite. Patient was also started back on Decadron 4 mg p.o. b.i.d. which also seemed to make him feel better and give him a better appetite. Patient will be going to rehab for strength training. Today patient was sitting up in bed and he had just completed his breakfast tray. He also walked to the bathroom with a walker
--- NOTE | 2021-04-12 09:20 | P.DS_ITS ---
DS: Admitting Diagnosis Discharge Date Date of service 04/12/2021 at 9:20 a.m. 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 DS: Discharge Diagnosis Discharge Diagnosis (1) Discharge planning issues: Code(s): Z02.9 - Encounter for administrative examinations, unspecified Status: Acute Assessment and Plan: * Rehab Vs Home with * [facility] accepted * [place] [facility] pending (2) Vasogenic brain edema: Code(s): G93.6 - Cerebral edema Status: Acute Assessment and Plan: * MRI brain: scattered supratentorial metastatic melanoma, no infarction, vasogenic edema from left parietal lobe * Decadron 4mg PO BID * Continue to monitor (3) Weakness: Code(s): R53.1 - Weakness Status: Acute Assessment and Plan: * Melanoma noted in the brain and in multiple areas of the body * PT/OT * Could be from deconditioning * Could be from worsening melanoma in the brain * Brain MRI did show some scattered supratentorial metastatic melanoma, no infarction, vasogenic edema from left parietal lobe * MRI of the spine does not show any metastatic disease at this time. 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: Onset Date: Unknown Code(s): C79.31 - Secondary malignant neoplasm of brain Status: Acute Assessment and Plan: * Neurology and oncology consulted thank you * MRI brain: scattered supratentorial metastatic melanoma, no infarction, vasogenic edema from left parietal lobe * Last radiation was 3 wks ago * Last chemo was about 2 weeks ago (6) Diabetes: Code(s): E11.9 - Type 2 diabetes mellitus without complications Status: Acute Assessment and Plan: * Current glucose 153 * Hold off on restarting home insulin since appetite has been decreased * Will need to pay attention because he is back on steroids. * Trend labs * Adjust medications as needed (7) Diarrhea: Code(s): R19.7 - Diarrhea, unspecified Status: Acute Assessment and Plan: * Seems to be resolved * Problem for this patient * Stool cultures negative up to this point (8) Hypokalemia: Code(s): E87.6 - Hypokalemia Status: Acute Assessment and Plan: * Potassium 4.0 * Probably from the diarrhea * Trend labs * replace as needed DS: Summary Hospital Course Hospital Course: Patient is a 65-year-old male with a past medical history metastatic melanoma, basal cell carcinoma, hyperlipidemia presented the ED for lower extremity weakness. Patient stated that when he stood up to get out of bed he felt very lightheaded and dizzy and fell. Patient was also complaining of diarrhea and lack of appetite. Patient had just undergone immunotherapy and radiation 2-3 weeks ago. MRI of the brain did was performed and showed metastatic melanoma with vasogenic edema to the left parietal lobe. MRI of the cervical thoracic and lumbar was also performed which showed no metastasis to the spinal cord. Patient was also found
[2021-04-12] MEDS: DEXAMETHASONE 4 MG TABLET PO (10:02)
[2021-04-12] MEDS: levETIRAcetam ORAL SOL 500 MG/5 ML UDC 250 MG PO (10:02)
[2021-04-12] MEDS: ENOXAPARIN 40 MG/0.4 ML SYRINGE SUB-Q (10:03)
--- NOTE | 2021-04-12 11:51 | PCNFU ---
Nutrition Follow-Up Complete: Unintended weight loss as related to poor po intake as evidenced by greater than 7.5% of weight loss in 3 months. Goal: Meet estimated nutritional needs Patient is progressing towards goal. No new goal at this time. Pt current nutrition is a diabetic consistent carbohydrate diet. Last recorded weight is 80 kg. Recommend re-weighing patient prior to discharge to further monitor weight loss. Bowel Motility: + BM 04/11/2021 Labs Reviewed: Hgb 12.7, Hct 37.9, Alb 2.5, Cr 0.5, Glu 208 Meds Noted: Glucagon, Lovenox, Novolog, Dexamethasone, Glucose, Imodium, Lorazepam Additional Notes: Checked in with patient. Patient is tolerating current diet with no nutritional questions or concerns. He is receiving ensure compact BID providing an additional 220 calories and 9 grams of protein. He is consuming on average 75% of meals ordered. No significant skin issues documented. Will monitor every 5 days.
[2021-04-12 11:56] LABS: Glucose Point of Care 204 mg/dl (65-105)
[2021-04-12] MEDS: INSULIN ASPART (*BKC) 100 UNITS/ML SUB-Q (12:32)
[2021-04-12 14:00] VITALS: BP 104/67; PULSE 64; RESP 18; TEMP 36.4; O2SAT 98
--- NOTE | 2021-04-12 14:54 | PCNSR ---
On 04/12/21, the student, Erika Varela, provided care and completed [facility] documentation on this patient. I have reviewed the student's documentation and agree with the findings.
== END 2021-04-12 15:20 | DRG 54 ==
LOC: ANHED 04-07 00:07 → ANH3MEDSUR 04-07 00:44
PROVIDERS: Admitting Provider Internal Medicine; Emergency Provider Emergency Medicine; PCP Family Medicine; Visit Provider Nurse Practitioner
DX: C79.31 Secondary malignant neoplasm of brain (principal); G93.6 Cerebral edema; Z91.81 History of falling; K21.9 Gastro-esophageal reflux disease without esophagitis; E78.00 Pure hypercholesterolemia, unspecified; Z85.820 Personal history of malignant melanoma of skin; E78.2 Mixed hyperlipidemia; E66.9 Obesity, unspecified; Z68.25 Body mass index [BMI] 25.0-25.9, adult; C43.61 Malignant melanoma of right upper limb, including shoulder; E11.9 Type 2 diabetes mellitus without complications; R19.7 Diarrhea, unspecified; E87.6 Hypokalemia; Z79.899 Other long term (current) drug therapy
CPT/HCPCS: 36415; 70450; 70553; 72125; 72156; 72157; 72158; 78195; 80053; 81001; 82948; 83735; 84132; 85025; 87015; 87045; 87269; 87272; 87324; 87427; 88305; 88307; 88342; 89055; 93005; 96372; 96374; 96375; 96376; 97110; 97116; 97162; 97165; 97530; 97535; 99285; A9270; A9520; A9577; G0378; J0690; J1650; J1815; J2060; J2250; J2270; J2405; J2704; J3480; J7030; J7120; J8540